=== PATIENT | male | born 2000 | race Two or more races ===

== ENCOUNTER 2019-05-03 13:38 | Inpatient (IN) | payer MEDICAID, OTHER ==
[~2019-05-03] VITALS: Ht 195.6 cm; Wt 121.6 kg
[2019-05-03 14:22] LABS: BASOPHILS % (AUTO) 0.4 % (0.0-2.0); EOSINOPHILS % (AUTO) 0.4 % (1.0-6.0); HEMATOCRIT 48.2 % (41-53); HEMOGLOBIN 16.2 g/dL (13.5-17.5); LYMPHOCYTES # (AUTO) 1.3 K/uL (1.0-4.8); LYMPHOCYTES % (AUTO) 10.3 % (22.0-44.0); MEAN CORPUSCULAR HEMOGLOBIN 31.1 pg (26.0-34.0); MEAN CORPUSCULAR HGB CONC 33.6 G/dL (31.0-37.0); MEAN CORPUSCULAR VOLUME 93 fL (80-100); MONOCYTES # (AUTO) 0.6 K/uL (0.1-1.0); MONOCYTES % (AUTO) 4.4 % (2.0-9.0); NEUTROPHILS # (AUTO) 10.5 K/uL (1.8-7.7); NEUTROPHILS % (AUTO) 84.5 % (40.0-70.0); PLATELET COUNT (AUTO) 235 K/uL (150-450)
[2019-05-03 14:31] LABS: ANION GAP 7 mmol/L (8-16); CALCIUM, TOTAL 9.8 mg/dL (8.8-10.5); CARBON DIOXIDE 30 mmol/L (22-29); CHLORIDE 101 mmol/L (98-107); CREATININE 1.03 mg/dL (0.60-1.30); GLOMERULAR FILTR. RATE CALC > 60 mL/min (>60); GLUCOSE,RANDOM 97 mg/dL (70-110); POTASSIUM 3.9 mmol/L (3.5-5.1); SODIUM SERUM 138 mmol/L (136-145); UREA NITROGEN, BLOOD 13 mg/dL (7-18)
[2019-05-03 14:37] LABS: ALANINE AMINOTRANSFERASE 21 U/L (12-78); ALBUMIN 4.7 g/dL (3.4-5.0); ALKALINE PHOSPHATASE 91 U/L (46-116); ASPARTATE AMINOTRANSFERASE 13 U/L (15-37); BILIRUBIN,TOTAL 1.2 mg/dL (0.1-1.0); TOTAL PROTEIN, SERUM 8.9 g/dL (6.4-8.2)
[2019-05-03] MEDS ORDERED: ACETAMINOPHEN 325 MG TABLET PO PRN (16:15)
[2019-05-03] MEDS ORDERED: IBUPROFEN 400 MG TABLET PO PRN (16:15)
[2019-05-03 16:32] LABS: AMPHET/METH SCREEN,URINE NEGATIVE (NEGATIVE); BARBITURATE SCREEN, URINE NEGATIVE (NEGATIVE); BENZODIAZEPINES SCREEN,URINE NEGATIVE (NEGATIVE); CANNABINOID SCREEN,URINE POSITIVE (NEGATIVE); COCAINE SCREEN,URINE NEGATIVE (NEGATIVE); METHADONE SCREEN, URINE NEGATIVE (NEGATIVE); OPIATE SCREEN,URINE NEGATIVE (NEGATIVE); PHENCYCLIDINE SCREEN,URINE NEGATIVE (NEGATIVE)
[2019-05-03 17:01] LABS: APPEARANCE,URINE CLEAR (CLEAR); GLUCOSE, URINE (UA) NEGATIVE (NEGATIVE); KETONES,URINE TRACE mg/dL (NEGATIVE); LEUKOCYTE ESTERASE ,URINE TRACE (NEGATIVE); NITRATE,URINE NEGATIVE (NEGATIVE); OCCULT BLOOD,URINE NEGATIVE (NEGATIVE); PH,URINE 7.5 (5.0-8.0); PROTEIN,URINE POS 1+ (NEGATIVE)
[2019-05-03 17:04] LABS: BILIRUBIN,URINE PRELIM. POSITIVE (NEGATIVE)
[2019-05-03 17:14] LABS: BACTERIA,URINE Rare /HPF (None Seen); RBC,URINE 0-2 /HPF (0-2); SQUAMOUS EPITHELIAL CELL,UR Few /LPF (None Seen)
[2019-05-03 19:35] VITALS: BP 139/81
[2019-05-03] MEDS ORDERED: CloNIDine HCL 0.1 MG TABLET PO PRN (20:00)
[2019-05-03] MEDS ORDERED: DOCUSATE SODIUM 100 MG CAPSULE PO PRN (20:00)
[2019-05-03] MEDS ORDERED: MAG HYDROX/AL HYDROX/SIMETH ES 30 ML SUSPENSION UDCUP PO PRN (20:00)
[2019-05-03] MEDS ORDERED: MAGNESIUM HYDROXIDE SUSPENSION 30 ML UDCUP PO PRN (20:00)
[2019-05-03] MEDS ORDERED: GuaiFENesin/D-METHORPHAN [SUGAR-FREE] 200-20MG/10 ML SYRUP UDCUP PO PRN (20:00)
[2019-05-03] MEDS ORDERED: LOPERAMIDE HCL 2 MG CAPSULE PO PRN (20:00)
[2019-05-03] MEDS ORDERED: ONDANSETRON HCL 4 MG TABLET PO PRN (20:00)
[2019-05-03] MEDS: ZOLPIDEM TARTRATE 10 MG TABLET PO PRN (20:41)
[2019-05-04 04:52] VITALS: BP 129/84
[2019-05-04 08:06] LABS: BASOPHILS % (AUTO) 0.3 % (0.0-2.0); EOSINOPHILS % (AUTO) 1.5 % (1.0-6.0); HEMATOCRIT 45.3 % (41-53); HEMOGLOBIN 15.4 g/dL (13.5-17.5); LYMPHOCYTES # (AUTO) 2.9 K/uL (1.0-4.8); LYMPHOCYTES % (AUTO) 29.8 % (22.0-44.0); MEAN CORPUSCULAR HEMOGLOBIN 31.5 pg (26.0-34.0); MEAN CORPUSCULAR HGB CONC 34.1 G/dL (31.0-37.0); MEAN CORPUSCULAR VOLUME 93 fL (80-100); MONOCYTES # (AUTO) 0.8 K/uL (0.1-1.0); MONOCYTES % (AUTO) 8.1 % (2.0-9.0); NEUTROPHILS # (AUTO) 5.9 K/uL (1.8-7.7); NEUTROPHILS % (AUTO) 60.3 % (40.0-70.0); PLATELET COUNT (AUTO) 225 K/uL (150-450); RED CELL DISTRIBUTION WIDTH 12.9 % (11.5-14.5)
[2019-05-04 08:20] LABS: HEMOGLOBIN A1C 5.1 % (4.5-6.2)
[2019-05-04 08:41] LABS: ALANINE AMINOTRANSFERASE 18 U/L (12-78); ALBUMIN 4.3 g/dL (3.4-5.0); ALKALINE PHOSPHATASE 76 U/L (46-116); ANION GAP 11 mmol/L (8-16); ASPARTATE AMINOTRANSFERASE 12 U/L (15-37); BILIRUBIN,TOTAL 1.2 mg/dL (0.1-1.0); CALCIUM, TOTAL 9.7 mg/dL (8.8-10.5); CARBON DIOXIDE 29 mmol/L (22-29); CHLORIDE 102 mmol/L (98-107); CHOL/HDL RATIO 3.3 (4.2-7.3); CHOLESTEROL 160 mg/dL (131-200); CREATININE 0.89 mg/dL (0.60-1.30); GLOMERULAR FILTR. RATE CALC > 60 mL/min (>60); GLUCOSE,RANDOM 81 mg/dL (70-110); HDL CHOLESTEROL 48 mg/dL (40-60); LDL CHOL (CALC.) 100 mg/dL (0-130); SODIUM SERUM 142 mmol/L (136-145); THYROID STIMULATING HORMONE 0.68 uIU/mL (0.36-3.74); TOTAL PROTEIN, SERUM 7.7 g/dL (6.4-8.2); TRIGLYCERIDES 58 mg/dL (15-150); UREA NITROGEN, BLOOD 10 mg/dL (7-18)
[2019-05-04 10:38] VITALS: BP 141/70
[2019-05-04] MEDS ORDERED: ALBUTEROL SULFATE HFA 90 MCG/PUFF 8 GM INHALER IH PRN (13:00)
[2019-05-04] MEDS ORDERED: ACETAMINOPHEN 325 MG TABLET PO PRN (13:00)
[2019-05-04] MEDS ORDERED: LOPERAMIDE HCL 2 MG CAPSULE PO PRN (13:00)
[2019-05-04] MEDS ORDERED: CloNIDine HCL 0.1 MG TABLET PO PRN (13:00)
[2019-05-04] MEDS ORDERED: IBUPROFEN 400 MG TABLET PO PRN (13:00)
[2019-05-04] MEDS ORDERED: GuaiFENesin/D-METHORPHAN [SUGAR-FREE] 200-20MG/10 ML SYRUP UDCUP PO PRN (13:00)
[2019-05-04] MEDS ORDERED: MAGNESIUM HYDROXIDE SUSPENSION 30 ML UDCUP PO PRN (13:00)
[2019-05-04] MEDS ORDERED: PETROLATUM,WHITE 28 GM JELLY TP PRN (13:00)
[2019-05-04] MEDS ORDERED: MAG HYDROX/AL HYDROX/SIMETH ES 30 ML SUSPENSION UDCUP PO PRN (13:00)
[2019-05-04] MEDS ORDERED: ONDANSETRON HCL 4 MG TABLET PO PRN (13:00)
[2019-05-04] MEDS ORDERED: DOCUSATE SODIUM 100 MG CAPSULE PO PRN (13:00)
[2019-05-04] MEDS ORDERED: NICOTINE 14 MG/24 HOUR PATCH TD PRN (13:00)
[2019-05-04 16:00] VITALS: BP 140/77
[2019-05-04] MEDS: LORazepam 2 MG TABLET PO PRN (20:07)
[2019-05-04] MEDS: HALOPERIDOL 5 MG TABLET PO PRN (20:07)
[2019-05-04] MEDS: ZOLPIDEM TARTRATE 10 MG TABLET PO PRN (22:10)
[2019-05-05 05:42] VITALS: BP 128/72
[2019-05-05 08:19] VITALS: BP 126/71
[2019-05-05 16:00] VITALS: BP 131/88
[2019-05-05] MEDS: HALOPERIDOL 5 MG TABLET PO PRN (16:16)
[2019-05-05] MEDS: LORazepam 2 MG TABLET PO PRN (16:16)
[2019-05-06 02:11] VITALS: BP 134/86
[2019-05-06 08:34] VITALS: BP 120/76
== END 2019-05-06 14:50 | disposition home or self-care (01) | DRG 750 ==
LOC: EMS 13:40 → B3A 16:46
PROVIDERS: ADMIT Psychiatry & Neurology Psychiatry; ATTEND Psychiatry & Neurology Psychiatry
DX: F20.9 Schizophrenia, unspecified (principal); R45.851 Suicidal ideations; D72.829 Elevated white blood cell count, unspecified; F32.9 Major depressive disorder, single episode, unspecified; E80.6 Other disorders of bilirubin metabolism; R03.0 Elevated blood-pressure reading, without diagnosis of hypertension; F12.10 Cannabis abuse, uncomplicated; Z71.51 Drug abuse counseling and surveillance of drug abuser
CPT/HCPCS: 83036; 84443; G0480

== ENCOUNTER 2019-05-10 00:14 | Emergency (ER) | payer MEDICAID, OTHER ==
[~2019-05-10] VITALS: Ht 195.6 cm; Wt 118.2 kg
[2019-05-10 01:27] LABS: AMPHET/METH SCREEN,URINE NEGATIVE (NEGATIVE); BARBITURATE SCREEN, URINE NEGATIVE (NEGATIVE); BENZODIAZEPINES SCREEN,URINE NEGATIVE (NEGATIVE); CANNABINOID SCREEN,URINE POSITIVE (NEGATIVE); COCAINE SCREEN,URINE NEGATIVE (NEGATIVE); METHADONE SCREEN, URINE NEGATIVE (NEGATIVE); OPIATE SCREEN,URINE NEGATIVE (NEGATIVE); PHENCYCLIDINE SCREEN,URINE NEGATIVE (NEGATIVE)
[2019-05-10] MEDS ORDERED: ACETAMINOPHEN 500 MG TABLET PO ONE (01:45)
[2019-05-10 01:54] LABS: BASOPHILS % (AUTO) 0.5 % (0.0-2.0); EOSINOPHILS % (AUTO) 1.2 % (1.0-6.0); HEMATOCRIT 44.3 % (41-53); HEMOGLOBIN 14.8 g/dL (13.5-17.5); LYMPHOCYTES % (AUTO) 17.5 % (22.0-44.0); MEAN CORPUSCULAR HEMOGLOBIN 31.1 pg (26.0-34.0); MEAN CORPUSCULAR HGB CONC 33.4 G/dL (31.0-37.0); MEAN CORPUSCULAR VOLUME 93 fL (80-100); MONOCYTES # (AUTO) 0.8 K/uL (0.1-1.0); MONOCYTES % (AUTO) 6.9 % (2.0-9.0); NEUTROPHILS # (AUTO) 8.5 K/uL (1.8-7.7); NEUTROPHILS % (AUTO) 73.9 % (40.0-70.0); PLATELET COUNT (AUTO) 214 K/uL (150-450); RED BLOOD CELL COUNT(AUTO) 4.75 MIL/uL (4.50-5.90); RED CELL DISTRIBUTION WIDTH 12.8 % (11.5-14.5)
[2019-05-10 01:58] LABS: ANION GAP 10 mmol/L (8-16); CALCIUM, TOTAL 9.6 mg/dL (8.8-10.5); CARBON DIOXIDE 30 mmol/L (22-29); CHLORIDE 100 mmol/L (98-107); CREATININE 1.02 mg/dL (0.60-1.30); GLOMERULAR FILTR. RATE CALC > 60 mL/min (>60); GLUCOSE,RANDOM 101 mg/dL (70-110); POTASSIUM 3.9 mmol/L (3.5-5.1); SODIUM SERUM 140 mmol/L (136-145); UREA NITROGEN, BLOOD 14 mg/dL (7-18)
[2019-05-10 02:05] LABS: ALANINE AMINOTRANSFERASE 18 U/L (12-78); ALBUMIN 4.5 g/dL (3.4-5.0); ALKALINE PHOSPHATASE 71 U/L (46-116); ASPARTATE AMINOTRANSFERASE 12 U/L (15-37); BILIRUBIN,TOTAL 0.4 mg/dL (0.1-1.0); TOTAL PROTEIN, SERUM 8.2 g/dL (6.4-8.2)
[2019-05-10 09:33] VITALS: BP 141/80
== END 2019-05-10 10:00 | disposition home or self-care (01) ==
LOC: EMS 00:16
DX: F20.9 Schizophrenia, unspecified (principal); F12.90 Cannabis use, unspecified, uncomplicated
CPT/HCPCS: 36415; 80053; 80307; 85025; 99285; G0480

== ENCOUNTER 2019-05-26 17:10 | Emergency (ER) | payer OTHER ==
[~2019-05-26] VITALS: Ht 195.6 cm; Wt 115.9 kg
[2019-05-26 20:21] LABS: BASOPHILS % (AUTO) 0.2 % (0.0-2.0); EOSINOPHILS % (AUTO) 0.1 % (1.0-6.0); HEMATOCRIT 47.3 % (41-53); HEMOGLOBIN 15.7 g/dL (13.5-17.5); LYMPHOCYTES # (AUTO) 1.3 K/uL (1.0-4.8); LYMPHOCYTES % (AUTO) 8.7 % (22.0-44.0); MEAN CORPUSCULAR HEMOGLOBIN 30.7 pg (26.0-34.0); MEAN CORPUSCULAR HGB CONC 33.2 G/dL (31.0-37.0); MEAN CORPUSCULAR VOLUME 92 fL (80-100); MONOCYTES # (AUTO) 0.8 K/uL (0.1-1.0); MONOCYTES % (AUTO) 5.5 % (2.0-9.0); NEUTROPHILS # (AUTO) 12.4 K/uL (1.8-7.7); PLATELET COUNT (AUTO) 220 K/uL (150-450); RED BLOOD CELL COUNT(AUTO) 5.12 MIL/uL (4.50-5.90); RED CELL DISTRIBUTION WIDTH 12.7 % (11.5-14.5)
[2019-05-26 20:22] LABS: ANION GAP 10 mmol/L (8-16); CALCIUM, TOTAL 9.4 mg/dL (8.8-10.5); CARBON DIOXIDE 27 mmol/L (22-29); CHLORIDE 103 mmol/L (98-107); CREATININE 0.89 mg/dL (0.60-1.30); GLOMERULAR FILTR. RATE CALC > 60 mL/min (>60); GLUCOSE,RANDOM 89 mg/dL (70-110); POTASSIUM 3.6 mmol/L (3.5-5.1); SODIUM SERUM 140 mmol/L (136-145); UREA NITROGEN, BLOOD 10 mg/dL (7-18)
[2019-05-26 20:27] LABS: NEUTROPHILS % (AUTO) 85.5 % (40.0-70.0)
[2019-05-26 20:30] LABS: ALANINE AMINOTRANSFERASE 16 U/L (12-78); ALBUMIN 4.4 g/dL (3.4-5.0); ALKALINE PHOSPHATASE 70 U/L (46-116); ASPARTATE AMINOTRANSFERASE 12 U/L (15-37); BILIRUBIN,TOTAL 0.9 mg/dL (0.1-1.0); TOTAL PROTEIN, SERUM 8.2 g/dL (6.4-8.2)
[2019-05-26 20:34] LABS: AMPHET/METH SCREEN,URINE NEGATIVE (NEGATIVE); BARBITURATE SCREEN, URINE NEGATIVE (NEGATIVE); BENZODIAZEPINES SCREEN,URINE NEGATIVE (NEGATIVE); CANNABINOID SCREEN,URINE POSITIVE (NEGATIVE); COCAINE SCREEN,URINE NEGATIVE (NEGATIVE); METHADONE SCREEN, URINE NEGATIVE (NEGATIVE); OPIATE SCREEN,URINE NEGATIVE (NEGATIVE); PHENCYCLIDINE SCREEN,URINE NEGATIVE (NEGATIVE)
[2019-05-26 21:51] VITALS: BP 132/65
== END 2019-05-26 22:16 | disposition home or self-care (01) ==
LOC: EMS 17:11
DX: F20.9 Schizophrenia, unspecified (principal); F12.90 Cannabis use, unspecified, uncomplicated
CPT/HCPCS: 36415; 80053; 80307; 85025; 99285; G0480

== ENCOUNTER 2019-05-30 12:12 | Emergency (ER) | payer OTHER ==
[~2019-05-30] VITALS: Ht 195.6 cm; Wt 113.6 kg
[2019-05-30 12:52] LABS: BASOPHILS % (AUTO) 0.6 % (0.0-2.0); EOSINOPHILS % (AUTO) 1.3 % (1.0-6.0); HEMATOCRIT 46.4 % (41-53); HEMOGLOBIN 15.7 g/dL (13.5-17.5); LYMPHOCYTES # (AUTO) 1.4 K/uL (1.0-4.8); LYMPHOCYTES % (AUTO) 15.8 % (22.0-44.0); MEAN CORPUSCULAR HEMOGLOBIN 31.4 pg (26.0-34.0); MEAN CORPUSCULAR HGB CONC 33.9 G/dL (31.0-37.0); MEAN CORPUSCULAR VOLUME 93 fL (80-100); MONOCYTES # (AUTO) 0.6 K/uL (0.1-1.0); MONOCYTES % (AUTO) 6.2 % (2.0-9.0); NEUTROPHILS # (AUTO) 6.9 K/uL (1.8-7.7); NEUTROPHILS % (AUTO) 76.1 % (40.0-70.0); PLATELET COUNT (AUTO) 195 K/uL (150-450)
[2019-05-30 13:01] LABS: ANION GAP 8 mmol/L (8-16); CARBON DIOXIDE 29 mmol/L (22-29); CHLORIDE 103 mmol/L (98-107); CREATININE 0.86 mg/dL (0.60-1.30); GLOMERULAR FILTR. RATE CALC > 60 mL/min (>60); GLUCOSE,RANDOM 99 mg/dL (70-110); POTASSIUM 4.2 mmol/L (3.5-5.1); SODIUM SERUM 140 mmol/L (136-145); UREA NITROGEN, BLOOD 12 mg/dL (7-18)
[2019-05-30 13:07] LABS: ALANINE AMINOTRANSFERASE 24 U/L (12-78); ALBUMIN 4.4 g/dL (3.4-5.0); ALKALINE PHOSPHATASE 68 U/L (46-116); ASPARTATE AMINOTRANSFERASE 14 U/L (15-37); BILIRUBIN,TOTAL 0.5 mg/dL (0.1-1.0); TOTAL PROTEIN, SERUM 8.1 g/dL (6.4-8.2)
[2019-05-30 13:41] LABS: AMPHET/METH SCREEN,URINE NEGATIVE (NEGATIVE); BARBITURATE SCREEN, URINE NEGATIVE (NEGATIVE); BENZODIAZEPINES SCREEN,URINE NEGATIVE (NEGATIVE); CANNABINOID SCREEN,URINE POSITIVE (NEGATIVE); COCAINE SCREEN,URINE NEGATIVE (NEGATIVE); METHADONE SCREEN, URINE NEGATIVE (NEGATIVE); OPIATE SCREEN,URINE NEGATIVE (NEGATIVE)
[2019-05-30 13:46] LABS: PHENCYCLIDINE SCREEN,URINE NEGATIVE (NEGATIVE)
[2019-05-30 15:11] VITALS: BP 132/70
== END 2019-05-30 16:03 | disposition home or self-care (01) ==
LOC: EMS 12:16
DX: F20.9 Schizophrenia, unspecified (principal); F12.90 Cannabis use, unspecified, uncomplicated
CPT/HCPCS: 36415; 80053; 80307; 85025; 99285; G0480

== ENCOUNTER 2019-09-06 08:02 | Inpatient (IN) | payer MEDICAID, OTHER ==
[~2019-09-06] VITALS: Ht 198.1 cm; Wt 125.2 kg
[2019-09-06 08:27] LABS: BASOPHILS % (AUTO) 0.5 % (0.0-2.0); EOSINOPHILS % (AUTO) 2.6 % (1.0-6.0); HEMATOCRIT 44.1 % (41-53); HEMOGLOBIN 15.8 g/dL (13.5-17.5); LYMPHOCYTES # (AUTO) 2.3 K/uL (1.0-4.8); LYMPHOCYTES % (AUTO) 29.4 % (22.0-44.0); MEAN CORPUSCULAR HEMOGLOBIN 31.9 pg (26.0-34.0); MEAN CORPUSCULAR HGB CONC 35.8 G/dL (31.0-37.0); MEAN CORPUSCULAR VOLUME 89 fL (80-100); MONOCYTES # (AUTO) 0.5 K/uL (0.1-1.0); MONOCYTES % (AUTO) 6.1 % (2.0-9.0); NEUTROPHILS # (AUTO) 4.8 K/uL (1.8-7.7); NEUTROPHILS % (AUTO) 61.4 % (40.0-70.0); PLATELET COUNT (AUTO) 208 K/uL (150-450); RED BLOOD CELL COUNT(AUTO) 4.94 MIL/uL (4.50-5.90)
[2019-09-06 08:31] LABS: ANION GAP 7 mmol/L (8-16); CALCIUM, TOTAL 8.7 mg/dL (8.8-10.5); CARBON DIOXIDE 29 mmol/L (22-29); CHLORIDE 103 mmol/L (98-107); GLOMERULAR FILTR. RATE CALC > 60 mL/min (>60); GLUCOSE,RANDOM 102 mg/dL (70-110); POTASSIUM 3.4 mmol/L (3.5-5.1); SODIUM SERUM 139 mmol/L (136-145); UREA NITROGEN, BLOOD 10 mg/dL (7-18)
[2019-09-06 08:37] LABS: ALANINE AMINOTRANSFERASE 26 U/L (12-78); ALBUMIN 4.1 g/dL (3.4-5.0); ALKALINE PHOSPHATASE 72 U/L (46-116); ASPARTATE AMINOTRANSFERASE 15 U/L (15-37); BILIRUBIN,TOTAL 0.6 mg/dL (0.1-1.0); TOTAL PROTEIN, SERUM 8.2 g/dL (6.4-8.2)
[2019-09-06 09:17] LABS: AMPHET/METH SCREEN,URINE NEGATIVE (NEGATIVE); BARBITURATE SCREEN, URINE NEGATIVE (NEGATIVE); BENZODIAZEPINES SCREEN,URINE NEGATIVE (NEGATIVE); CANNABINOID SCREEN,URINE POSITIVE (NEGATIVE); COCAINE SCREEN,URINE NEGATIVE (NEGATIVE); METHADONE SCREEN, URINE NEGATIVE (NEGATIVE); OPIATE SCREEN,URINE NEGATIVE (NEGATIVE); PHENCYCLIDINE SCREEN,URINE NEGATIVE (NEGATIVE)
[2019-09-06] MEDS ORDERED: HALOPERIDOL 5 MG TABLET PO ONE (09:45)
[2019-09-06] MEDS ORDERED: LORazepam 2 MG TABLET PO ONE (09:45)
[2019-09-06] MEDS ORDERED: DiphenhydrAMINE HCL 50 MG CAPSULE PO ONE (09:45)
[2019-09-06] MEDS ORDERED: POTASSIUM CHLORIDE 20 MEQ ER TABLET PO ONE (10:00)
[2019-09-06] MEDS ORDERED: HALOPERIDOL 5 MG TABLET PO PRN (10:15)
[2019-09-06] MEDS ORDERED: PNEUMOCOCCAL VACCINE POLYVALENT 0.5 ML VIAL [PPSV23] IM ONE (14:00)
[2019-09-06] MEDS ORDERED: INFLUENZA VIRUS VACCINE QVS 2019-20 (3YR+)/PF 60 MCG/0.5 ML SYRINGE IM ONE (14:00)
[2019-09-06 16:12] VITALS: BP 115/56
[2019-09-06] MEDS ORDERED: NICOTINE 14 MG/24 HOUR PATCH TD PRN (16:30)
[2019-09-06] MEDS ORDERED: MAGNESIUM HYDROXIDE SUSPENSION 30 ML UDCUP PO PRN (16:30)
[2019-09-06] MEDS ORDERED: PETROLATUM,WHITE 28 GM JELLY TP PRN (16:30)
[2019-09-06] MEDS ORDERED: MAG HYDROX/AL HYDROX/SIMETH ES 30 ML SUSPENSION UDCUP PO PRN (16:30)
[2019-09-06] MEDS ORDERED: DOCUSATE SODIUM 100 MG CAPSULE PO PRN (16:30)
[2019-09-06] MEDS ORDERED: ONDANSETRON HCL 4 MG TABLET PO PRN (16:30)
[2019-09-06] MEDS ORDERED: ACETAMINOPHEN 325 MG TABLET PO PRN (16:30)
[2019-09-06] MEDS ORDERED: GuaiFENesin/D-METHORPHAN [SUGAR-FREE] 200-20MG/10 ML SYRUP UDCUP PO PRN (16:30)
[2019-09-06] MEDS ORDERED: ALBUTEROL SULFATE HFA 90 MCG/PUFF 8 GM INHALER IH PRN (16:30)
[2019-09-06] MEDS ORDERED: CloNIDine HCL 0.1 MG TABLET PO PRN (16:30)
[2019-09-06] MEDS ORDERED: LOPERAMIDE HCL 2 MG CAPSULE PO PRN (16:30)
[2019-09-07 05:41] VITALS: BP 144/75
[2019-09-07 08:03] VITALS: BP 160/96
[2019-09-07 09:03] VITALS: BP 140/71
[2019-09-07] MEDS: BACITRACIN 28.4 GM OINTMENT TP SCH ×2 (09:05→16:48)
[2019-09-07] MEDS ORDERED: POTASSIUM CHLORIDE 20 MEQ ER TABLET PO ONE (10:45)
[2019-09-07] MEDS: ARIPiprazole 10 MG TABLET PO SCH (11:54)
[2019-09-07 16:23] VITALS: BP 133/92
[2019-09-07] MEDS: LORazepam 2 MG TABLET PO PRN (21:27)
[2019-09-07] MEDS: ZOLPIDEM TARTRATE 10 MG TABLET PO PRN (22:40)
[2019-09-08 06:10] VITALS: BP 135/73
[2019-09-08 08:25] VITALS: BP 148/76
[2019-09-08] MEDS: ARIPiprazole 10 MG TABLET PO SCH (08:41)
[2019-09-08] MEDS: BACITRACIN 28.4 GM OINTMENT TP SCH ×2 (10:05→16:46)
[2019-09-08] MEDS: IBUPROFEN 400 MG TABLET PO PRN (10:11)
[2019-09-08 16:00] VITALS: BP 128/75
[2019-09-08] MEDS: LORazepam 2 MG TABLET PO PRN ×2 (16:46→20:49)
[2019-09-08] MEDS: ZOLPIDEM TARTRATE 10 MG TABLET PO PRN (20:49)
[2019-09-09 05:54] VITALS: BP 127/83
[2019-09-09] MEDS: ARIPiprazole 10 MG TABLET PO SCH (08:14)
[2019-09-09 08:15] VITALS: BP 116/76
[2019-09-09] MEDS: BACITRACIN 28.4 GM OINTMENT TP SCH (08:33)
[2019-09-09] MEDS ORDERED: BACI30OI6 TP (11:34)
[2019-09-09] MEDS ORDERED: ARIP10TA8 PO (11:34)
[2019-09-09] MEDS: IBUPROFEN 400 MG TABLET PO PRN (11:49)
== END 2019-09-09 13:15 | disposition home or self-care (01) | DRG 750 ==
LOC: EMS 08:03 → B3A 10:57 → EMS 11:37
DX: F25.1 Schizoaffective disorder, depressive type (principal); R45.851 Suicidal ideations; Z91.14 Patient's other noncompliance with medication regimen; E87.6 Hypokalemia; F12.10 Cannabis abuse, uncomplicated; K21.9 Gastro-esophageal reflux disease without esophagitis; S60.511A Abrasion of right hand, initial encounter; R03.0 Elevated blood-pressure reading, without diagnosis of hypertension; F19.10 Other psychoactive substance abuse, uncomplicated; W22.01XA Walked into wall, initial encounter; Y93.89 Activity, other specified; Y92.89 Other specified places as the place of occurrence of the external cause; Y99.8 Other external cause status; Z79.899 Other long term (current) drug therapy; Z71.51 Drug abuse counseling and surveillance of drug abuser
CPT/HCPCS: 90686; 90732; G0480

== ENCOUNTER 2019-10-23 00:25 | Emergency (ER) | payer MEDICAID, OTHER ==
[~2019-10-23] VITALS: Ht 193 cm; Wt 120.5 kg
[~2019-10-23 00:25] MED LIST: ARIP10TA8 PO; BACI30OI6 TP
[2019-10-23 02:24] LABS: AMPHET/METH SCREEN,URINE NEGATIVE (NEGATIVE); BARBITURATE SCREEN, URINE NEGATIVE (NEGATIVE); BENZODIAZEPINES SCREEN,URINE NEGATIVE (NEGATIVE); CANNABINOID SCREEN,URINE POSITIVE (NEGATIVE); COCAINE SCREEN,URINE NEGATIVE (NEGATIVE); METHADONE SCREEN, URINE NEGATIVE (NEGATIVE); OPIATE SCREEN,URINE NEGATIVE (NEGATIVE); PHENCYCLIDINE SCREEN,URINE NEGATIVE (NEGATIVE)
[2019-10-23 02:35] LABS: BASOPHILS % (AUTO) 0.3 % (0.0-2.0); EOSINOPHILS % (AUTO) 0.1 % (1.0-6.0); HEMOGLOBIN 15.2 g/dL (13.5-17.5); LYMPHOCYTES # (AUTO) 1.2 K/uL (1.0-4.8); MEAN CORPUSCULAR HEMOGLOBIN 31.5 pg (26.0-34.0); MEAN CORPUSCULAR HGB CONC 34.6 G/dL (31.0-37.0); MEAN CORPUSCULAR VOLUME 91 fL (80-100); MONOCYTES # (AUTO) 0.7 K/uL (0.1-1.0); MONOCYTES % (AUTO) 5.1 % (2.0-9.0); NEUTROPHILS # (AUTO) 11.7 K/uL (1.8-7.7); PLATELET COUNT (AUTO) 217 K/uL (150-450); RED BLOOD CELL COUNT(AUTO) 4.83 MIL/uL (4.50-5.90); RED CELL DISTRIBUTION WIDTH 13.2 % (11.5-14.5)
[2019-10-23 02:36] LABS: NEUTROPHILS % (AUTO) 85.5 % (40.0-70.0)
[2019-10-23 02:46] LABS: ANION GAP 6 mmol/L (8-16); CARBON DIOXIDE 31 mmol/L (22-29); CHLORIDE 102 mmol/L (98-107); CREATININE 0.89 mg/dL (0.60-1.30); GLOMERULAR FILTR. RATE CALC > 60 mL/min (>60); GLUCOSE,RANDOM 100 mg/dL (70-110); POTASSIUM 3.9 mmol/L (3.5-5.1); SODIUM SERUM 139 mmol/L (136-145); UREA NITROGEN, BLOOD 15 mg/dL (7-18)
[2019-10-23 02:52] LABS: ALANINE AMINOTRANSFERASE 38 U/L (12-78); ALKALINE PHOSPHATASE 79 U/L (46-116); ASPARTATE AMINOTRANSFERASE 15 U/L (15-37); BILIRUBIN,TOTAL 0.5 mg/dL (0.1-1.0); TOTAL PROTEIN, SERUM 7.7 g/dL (6.4-8.2)
[2019-10-23] MEDS ORDERED: PERTUSS(ACELL),DIPH,TET VAC/PF 0.5 ML VIAL IM ONE (03:45)
[2019-10-23] MEDS ORDERED: ZOLPIDEM TARTRATE 10 MG TABLET PO PRN (04:15)
[2019-10-23] MEDS ORDERED: HALOPERIDOL 5 MG TABLET PO PRN (04:15)
[2019-10-23] MEDS ORDERED: LORazepam 2 MG TABLET PO PRN (04:15)
[2019-10-23 07:00] VITALS: BP 121/75
[2019-10-23] MEDS ORDERED: PETROLATUM,WHITE 28 GM JELLY TP PRN (08:45)
[2019-10-23] MEDS ORDERED: CloNIDine HCL 0.1 MG TABLET PO PRN (08:45)
[2019-10-23] MEDS ORDERED: ONDANSETRON HCL 4 MG TABLET PO PRN (08:45)
[2019-10-23] MEDS ORDERED: DOCUSATE SODIUM 100 MG CAPSULE PO PRN (08:45)
[2019-10-23] MEDS ORDERED: LOPERAMIDE HCL 2 MG CAPSULE PO PRN (08:45)
[2019-10-23] MEDS ORDERED: ACETAMINOPHEN 325 MG TABLET PO PRN (08:45)
[2019-10-23] MEDS ORDERED: MAGNESIUM HYDROXIDE SUSPENSION 30 ML UDCUP PO PRN (08:45)
[2019-10-23] MEDS ORDERED: NICOTINE 14 MG/24 HOUR PATCH TD PRN (08:45)
[2019-10-23] MEDS ORDERED: MAG HYDROX/AL HYDROX/SIMETH ES 30 ML SUSPENSION UDCUP PO PRN (08:45)
[2019-10-23] MEDS ORDERED: GuaiFENesin/D-METHORPHAN [SUGAR-FREE] 200-20MG/10 ML SYRUP UDCUP PO PRN (08:45)
[2019-10-23] MEDS ORDERED: ALBUTEROL SULFATE HFA 90 MCG/PUFF 8 GM INHALER IH PRN (08:45)
[2019-10-23] MEDS ORDERED: IBUPROFEN 400 MG TABLET PO PRN (08:45)
[2019-10-24 04:27] LABS: APPEARANCE,URINE CLOUDY (CLEAR); BILIRUBIN,URINE NEGATIVE (NEGATIVE); GLUCOSE, URINE (UA) NEGATIVE (NEGATIVE); KETONES,URINE NEGATIVE (NEGATIVE); LEUKOCYTE ESTERASE ,URINE NEGATIVE (NEGATIVE); NITRATE,URINE NEGATIVE (NEGATIVE); OCCULT BLOOD,URINE NEGATIVE (NEGATIVE); PROTEIN,URINE TRACE (NEGATIVE); UROBILINOGEN,URINE 0.2 mg/dL (<=1.0)
== END 2019-10-23 11:30 | disposition other institution (70) ==
LOC: EMS 00:27
DX: F25.9 Schizoaffective disorder, unspecified (principal); F12.90 Cannabis use, unspecified, uncomplicated; Z79.899 Other long term (current) drug therapy
CPT/HCPCS: 36415; 73610; 80053; 80307; 81003; 85025; 90471; 90715; 99285; G0480

== ENCOUNTER 2019-10-23 14:18 | Inpatient (IN) | payer MEDICAID, OTHER ==
[~2019-10-23] VITALS: Ht 193 cm; Wt 130.7 kg
[2019-10-23] MEDS ORDERED: DiphenhydrAMINE HCL 50 MG/ML VIAL IM ONE (14:30)
[2019-10-23] MEDS ORDERED: HALOPERIDOL LACTATE 5 MG/ML VIAL IM ONE (14:30)
[2019-10-23] MEDS ORDERED: LORazepam 2 MG/ML VIAL IM ONE (14:30)
[2019-10-24] MEDS ORDERED: INFLUENZA VIRUS VACCINE QVS 2019-20 (3YR+)/PF 60 MCG/0.5 ML SYRINGE IM ONE (05:45)
[2019-10-24 16:05] VITALS: BP 125/70
[2019-10-24] MEDS: HALOPERIDOL 5 MG TABLET PO PRN (16:21)
[2019-10-24] MEDS: LORazepam 2 MG TABLET PO PRN (16:21)
[2019-10-24] MEDS: BACITRACIN 28.4 GM OINTMENT TP SCH (16:21)
[2019-10-24] MEDS: ZOLPIDEM TARTRATE 10 MG TABLET PO PRN (20:42)
[2019-10-24] MEDS ORDERED: ARIPiprazole 15 MG TABLET PO SCH (21:00)
[2019-10-25 08:32] VITALS: BP 110/54
[2019-10-25] MEDS: BACITRACIN 28.4 GM OINTMENT TP SCH ×2 (10:39→16:38)
[2019-10-25] MEDS ORDERED: IBUPROFEN 400 MG TABLET PO PRN (10:45)
[2019-10-25 16:04] VITALS: BP 114/60
[2019-10-25] MEDS: HALOPERIDOL 5 MG TABLET PO PRN (18:59)
[2019-10-25] MEDS: LORazepam 2 MG TABLET PO PRN (18:59)
[2019-10-25] MEDS ORDERED: ARIPiprazole LAUROXIL ER SUSPENSION 882 MG/3.2 ML SYRINGE IM SCH (21:00)
[2019-10-25] MEDS: ZOLPIDEM TARTRATE 10 MG TABLET PO PRN (21:30)
[2019-10-26 08:27] VITALS: BP 124/68
[2019-10-26] MEDS: BACITRACIN 28.4 GM OINTMENT TP SCH ×3 (08:35→17:00)
[2019-10-26] MEDS: LORazepam 2 MG TABLET PO PRN ×2 (08:36→16:22)
[2019-10-26] MEDS ORDERED: ARIPiprazole 15 MG TABLET PO ONE (09:30)
[2019-10-26 09:38] LABS: CHOL/HDL RATIO 3.6 (4.2-7.3); FREE T4 (FREE THYROXINE) 1.19 ng/dL (0.76-1.46); THYROID STIMULATING HORMONE 0.59 uIU/mL (0.36-3.74)
[2019-10-26] MEDS ORDERED: ARIPiprazole LAUROXIL,SUBMICR. ER SUSPENSION 675 MG/2.4 ML SYRINGE IM ONE (11:00)
[2019-10-26] MEDS ORDERED: ARIPiprazole LAUROXIL ER SUSPENSION 1064 MG/3.9 ML SYRINGE IM ONE (11:00)
[2019-10-26 16:00] VITALS: BP 117/7
[2019-10-26] MEDS: HALOPERIDOL 5 MG TABLET PO PRN (16:22)
[2019-10-27 01:22] VITALS: BP 134/73
[2019-10-27 08:30] VITALS: BP 125/60
[2019-10-27] MEDS: BACITRACIN 28.4 GM OINTMENT TP SCH (09:58)
[2019-10-27] MEDS ORDERED: ARIP1064 IM ×2 (13:09→13:11)
[2019-10-27] MEDS ORDERED: ARIP662S IM (13:09)
== END 2019-10-27 13:55 | disposition home or self-care (01) | DRG 750 ==
LOC: EMS 14:18 → B3A 17:14
PROVIDERS: ADMIT Psychiatry & Neurology Child & Adolescent Psychiatry; ATTEND Psychiatry & Neurology Child & Adolescent Psychiatry
DX: F20.0 Paranoid schizophrenia (principal); R45.851 Suicidal ideations; Z78.1 Physical restraint status; F12.10 Cannabis abuse, uncomplicated; K21.9 Gastro-esophageal reflux disease without esophagitis; R00.0 Tachycardia, unspecified; Z28.21 Immunization not carried out because of patient refusal; Z79.899 Other long term (current) drug therapy
CPT/HCPCS: 84439; 84443; 99291; J1200; J1630; J2060

== ENCOUNTER 2019-12-07 12:41 | Inpatient (IN) | payer MEDICAID, OTHER ==
[~2019-12-07] VITALS: Ht 198.1 cm; Wt 138.8 kg
[~2019-12-07 12:41] MED LIST changes: +ARIP1064 IM; -ARIP10TA8 PO; +ARIP662S IM
[2019-12-07 14:35] LABS: BASOPHILS % (AUTO) 0.3 % (0.0-2.0); EOSINOPHILS % (AUTO) 0.2 % (1.0-6.0); HEMATOCRIT 46.8 % (41-53); HEMOGLOBIN 16.3 g/dL (13.5-17.5); LYMPHOCYTES # (AUTO) 1.3 K/uL (1.0-4.8); LYMPHOCYTES % (AUTO) 9.2 % (22.0-44.0); MEAN CORPUSCULAR HEMOGLOBIN 31.4 pg (26.0-34.0); MEAN CORPUSCULAR HGB CONC 34.8 G/dL (31.0-37.0); MEAN CORPUSCULAR VOLUME 90 fL (80-100); MONOCYTES # (AUTO) 0.8 K/uL (0.1-1.0); MONOCYTES % (AUTO) 5.2 % (2.0-9.0); NEUTROPHILS # (AUTO) 12.5 K/uL (1.8-7.7); NEUTROPHILS % (AUTO) 85.1 % (40.0-70.0); PLATELET COUNT (AUTO) 214 K/uL (150-450); RED BLOOD CELL COUNT(AUTO) 5.17 MIL/uL (4.50-5.90)
[2019-12-07 14:46] LABS: ANION GAP 8 mmol/L (8-16); CALCIUM, TOTAL 9.4 mg/dL (8.8-10.5); CARBON DIOXIDE 28 mmol/L (22-29); CHLORIDE 100 mmol/L (98-107); CREATININE 1.01 mg/dL (0.60-1.30); GLOMERULAR FILTR. RATE CALC > 60 mL/min (>60); GLUCOSE,RANDOM 98 mg/dL (70-110); SODIUM SERUM 136 mmol/L (136-145); UREA NITROGEN, BLOOD 12 mg/dL (7-18)
[2019-12-07 14:51] LABS: ALANINE AMINOTRANSFERASE 35 U/L (12-78); ALBUMIN 4.4 g/dL (3.4-5.0); ALKALINE PHOSPHATASE 84 U/L (46-116); ASPARTATE AMINOTRANSFERASE 17 U/L (15-37); BILIRUBIN,TOTAL 0.7 mg/dL (0.1-1.0); TOTAL PROTEIN, SERUM 8.6 g/dL (6.4-8.2)
[2019-12-07 14:56] LABS: AMPHET/METH SCREEN,URINE NEGATIVE (NEGATIVE); BARBITURATE SCREEN, URINE NEGATIVE (NEGATIVE); BENZODIAZEPINES SCREEN,URINE NEGATIVE (NEGATIVE); CANNABINOID SCREEN,URINE POSITIVE (NEGATIVE); COCAINE SCREEN,URINE NEGATIVE (NEGATIVE); METHADONE SCREEN, URINE NEGATIVE (NEGATIVE); OPIATE SCREEN,URINE NEGATIVE (NEGATIVE)
[2019-12-07 14:57] LABS: PHENCYCLIDINE SCREEN,URINE NEGATIVE (NEGATIVE)
[2019-12-07] MEDS ORDERED: HALOPERIDOL 5 MG TABLET PO PRN (15:15)
[2019-12-07] MEDS ORDERED: LORazepam 2 MG TABLET PO ONE (16:30)
[2019-12-07] MEDS ORDERED: HALOPERIDOL 5 MG TABLET PO ONE (16:30)
[2019-12-07 17:38] VITALS: BP 147/88
[2019-12-07] MEDS: ZOLPIDEM TARTRATE 10 MG TABLET PO PRN (20:16)
[2019-12-08 09:30] VITALS: BP 122/78
[2019-12-08] MEDS ORDERED: ARIPiprazole LAUROXIL ER SUSPENSION 1064 MG/3.9 ML SYRINGE IM SCH (11:00)
[2019-12-08] MEDS ORDERED: IBUPROFEN 400 MG TABLET PO PRN (14:15)
[2019-12-08] MEDS ORDERED: CloNIDine HCL 0.1 MG TABLET PO PRN (14:15)
[2019-12-08] MEDS ORDERED: ACETAMINOPHEN 325 MG TABLET PO PRN (14:15)
[2019-12-08] MEDS ORDERED: NICOTINE 14 MG/24 HOUR PATCH TD PRN (14:15)
[2019-12-08] MEDS ORDERED: DOCUSATE SODIUM 100 MG CAPSULE PO PRN (14:15)
[2019-12-08] MEDS ORDERED: ALBUTEROL SULFATE HFA 90 MCG/PUFF 8 GM INHALER IH PRN (14:15)
[2019-12-08] MEDS ORDERED: ONDANSETRON HCL 4 MG TABLET PO PRN (14:15)
[2019-12-08] MEDS ORDERED: LOPERAMIDE HCL 2 MG CAPSULE PO PRN (14:15)
[2019-12-08] MEDS ORDERED: PETROLATUM,WHITE 28 GM JELLY TP PRN (14:15)
[2019-12-08] MEDS ORDERED: MAGNESIUM HYDROXIDE SUSPENSION 30 ML UDCUP PO PRN (14:15)
[2019-12-08] MEDS ORDERED: GuaiFENesin/D-METHORPHAN [SUGAR-FREE] 200-20MG/10 ML SYRUP UDCUP PO PRN (14:15)
[2019-12-08] MEDS ORDERED: MAG HYDROX/AL HYDROX/SIMETH ES 30 ML SUSPENSION UDCUP PO PRN (14:15)
[2019-12-08 16:10] VITALS: BP 141/82
[2019-12-08] MEDS: LORazepam 2 MG TABLET PO PRN (19:32)
[2019-12-09] MEDS: LORazepam 2 MG TABLET PO PRN (16:47)
[2019-12-09 20:22] VITALS: BP 119/68
[2019-12-09] MEDS: ZOLPIDEM TARTRATE 10 MG TABLET PO PRN (20:53)
[2019-12-10 08:08] VITALS: BP 131/76
[2019-12-10] MEDS ORDERED: ARIP1064 IM (09:41)
== END 2019-12-10 13:30 | disposition home or self-care (01) | DRG 885 ==
LOC: EMS 12:46 → 3EC 16:20
DX: F25.0 Schizoaffective disorder, bipolar type (principal); F12.10 Cannabis abuse, uncomplicated; D72.829 Elevated white blood cell count, unspecified; F41.9 Anxiety disorder, unspecified
CPT/HCPCS: 87081; G0480

== ENCOUNTER 2020-07-07 09:13 | Inpatient (IN) | payer MEDICAID, OTHER ==
[~2020-07-07] VITALS: Ht 188 cm; Wt 153.3 kg
[~2020-07-07 09:13] MED LIST changes: -ARIP662S IM; -BACI30OI6 TP
[2020-07-07] MEDS ORDERED: MethylPREDNISolone SOD SUCC 125 MG/2 ML VIAL IVP ONE (10:00)
[2020-07-07] MEDS ORDERED: FAMOTIDINE 10 MG/ML 2 ML VIAL IVP ONE (10:00)
[2020-07-07] MEDS ORDERED: DiphenhydrAMINE HCL 50 MG/ML VIAL IVP ONE (10:00)
[2020-07-07] MEDS ORDERED: SODIUM CHLORIDE 0.9% 1,000 ML IV ONE (10:00)
[2020-07-07] MEDS ORDERED: DiphenhydrAMINE HCL 50 MG/ML VIAL IM ONE ×2 (10:15→13:30)
[2020-07-07] MEDS ORDERED: LORazepam 2 MG/ML VIAL IM ONE ×2 (10:15→13:30)
[2020-07-07] MEDS ORDERED: HALOPERIDOL LACTATE 5 MG/ML VIAL IM ONE ×2 (10:15→13:30)
[2020-07-07 10:45] LABS: BASOPHILS % (AUTO) 0.3 % (0.0-2.0); EOSINOPHILS % (AUTO) 0.7 % (1.0-6.0); MEAN CORPUSCULAR HGB CONC 35.6 G/dL (31.0-37.0); MEAN CORPUSCULAR VOLUME 90 fL (80-100); MONOCYTES # (AUTO) 0.6 K/uL (0.1-1.0); MONOCYTES % (AUTO) 5.6 % (2.0-9.0); NEUTROPHILS # (AUTO) 8.2 K/uL (1.8-7.7); NEUTROPHILS % (AUTO) 83.4 % (40.0-70.0); PLATELET COUNT (AUTO) 227 K/uL (150-450); RED CELL DISTRIBUTION WIDTH 12.7 % (11.5-14.5)
[2020-07-07 10:54] LABS: ANION GAP 6 mmol/L (8-16); CALCIUM, TOTAL 9.1 mg/dL (8.8-10.5); CARBON DIOXIDE 30 mmol/L (22-29); CHLORIDE 104 mmol/L (98-107); GLOMERULAR FILTR. RATE CALC > 60 mL/min (>60); GLUCOSE,RANDOM 116 mg/dL (70-110); POTASSIUM 3.4 mmol/L (3.5-5.1); SODIUM SERUM 140 mmol/L (136-145); UREA NITROGEN, BLOOD 7 mg/dL (7-18)
[2020-07-07 10:57] LABS: COVID AG,FIA SOURCE NASOPHARYNGEAL
[2020-07-07 11:00] LABS: ALANINE AMINOTRANSFERASE 132 U/L (12-78); ALKALINE PHOSPHATASE 73 U/L (46-116); ASPARTATE AMINOTRANSFERASE 69 U/L (15-37); BILIRUBIN,TOTAL 0.9 mg/dL (0.1-1.0); TOTAL PROTEIN, SERUM 7.5 g/dL (6.4-8.2)
[2020-07-07] MEDS ORDERED: POTASSIUM CHLORIDE 20 MEQ ER TABLET PO ONE (12:45)
[2020-07-07] MEDS ORDERED: INFLUENZA VIRUS VACCINE QVS 2020-21 (6MO+)/PF 60 MCG/0.5 ML SYRINGE IM ONE (21:00)
[2020-07-08] MEDS: LORazepam 2 MG TABLET PO PRN ×2 (07:59→13:10)
[2020-07-08] MEDS: HALOPERIDOL 5 MG TABLET PO PRN ×2 (07:59→13:10)
[2020-07-08 10:40] VITALS: BP 131/71
[2020-07-08] MEDS ORDERED: POTASSIUM CHLORIDE 20 MEQ ER TABLET PO ONE (15:15)
[2020-07-08] MEDS ORDERED: CloNIDine HCL 0.1 MG TABLET PO PRN (15:15)
[2020-07-08] MEDS ORDERED: NICOTINE 14 MG/24 HOUR PATCH TD PRN (15:15)
[2020-07-08] MEDS ORDERED: MAGNESIUM HYDROXIDE SUSPENSION 30 ML UDCUP PO PRN (15:15)
[2020-07-08] MEDS ORDERED: ONDANSETRON HCL 4 MG TABLET PO PRN (15:15)
[2020-07-08] MEDS ORDERED: PETROLATUM,WHITE 28 GM JELLY TP PRN (15:15)
[2020-07-08] MEDS ORDERED: LOPERAMIDE HCL 2 MG CAPSULE PO PRN (15:15)
[2020-07-08] MEDS ORDERED: ALBUTEROL SULFATE HFA 90 MCG/PUFF 8 GM INHALER IH PRN (15:15)
[2020-07-08] MEDS ORDERED: IBUPROFEN 400 MG TABLET PO PRN (15:15)
[2020-07-08] MEDS ORDERED: DOCUSATE SODIUM 100 MG CAPSULE PO PRN (15:15)
[2020-07-08] MEDS ORDERED: ACETAMINOPHEN 325 MG TABLET PO PRN (15:15)
[2020-07-08] MEDS ORDERED: MAG HYDROX/AL HYDROX/SIMETH ES 30 ML SUSPENSION UDCUP PO PRN (15:15)
[2020-07-08] MEDS ORDERED: GuaiFENesin/D-METHORPHAN [SUGAR-FREE] 200-20MG/10 ML SYRUP UDCUP PO PRN (15:15)
[2020-07-09] MEDS: HALOPERIDOL 5 MG TABLET PO PRN ×2 (03:24→08:39)
[2020-07-09] MEDS: LORazepam 2 MG TABLET PO PRN ×2 (03:24→08:39)
[2020-07-09] MEDS: ZOLPIDEM TARTRATE 10 MG TABLET PO PRN (03:24)
[2020-07-09] MEDS: ARIPiprazole 10 MG TABLET PO SCH (08:17)
[2020-07-10] MEDS: LORazepam 2 MG TABLET PO PRN ×3 (01:12→21:24)
[2020-07-10] MEDS: HALOPERIDOL 5 MG TABLET PO PRN ×2 (01:12→21:24)
[2020-07-10] MEDS: ZOLPIDEM TARTRATE 10 MG TABLET PO PRN ×2 (01:12→22:13)
[2020-07-10 07:15] LABS: CHOL/HDL RATIO 3.7 (4.2-7.3); POTASSIUM 3.8 mmol/L (3.5-5.1)
[2020-07-10] MEDS: ARIPiprazole 10 MG TABLET PO SCH (08:54)
[2020-07-11] MEDS: LORazepam 2 MG TABLET PO PRN ×3 (07:51→19:11)
[2020-07-11] MEDS: HALOPERIDOL 5 MG TABLET PO PRN ×3 (07:51→19:11)
[2020-07-11] MEDS: ARIPiprazole 10 MG TABLET PO SCH ×2 (07:51→17:57)
[2020-07-11 08:00] VITALS: BP 166/78
[2020-07-11] MEDS: SERTRALINE HCL 50 MG TABLET PO SCH (11:14)
[2020-07-11 17:00] VITALS: BP 122/86
[2020-07-12] MEDS: LORazepam 2 MG TABLET PO PRN (08:01)
[2020-07-12] MEDS: SERTRALINE HCL 50 MG TABLET PO SCH (08:01)
[2020-07-12] MEDS: HALOPERIDOL 5 MG TABLET PO PRN (08:01)
[2020-07-12] MEDS: ARIPiprazole 10 MG TABLET PO SCH ×2 (08:01→17:30)
[2020-07-12 10:32] VITALS: BP 135/72
[2020-07-13] MEDS: HALOPERIDOL 5 MG TABLET PO PRN ×4 (03:42→16:08)
[2020-07-13] MEDS: LORazepam 2 MG TABLET PO PRN ×4 (03:42→16:08)
[2020-07-13] MEDS: ARIPiprazole 10 MG TABLET PO SCH ×2 (07:58→16:08)
[2020-07-13] MEDS: SERTRALINE HCL 50 MG TABLET PO SCH (10:11)
[2020-07-13 17:00] VITALS: BP 107/50
[2020-07-14] MEDS: ARIPiprazole 10 MG TABLET PO SCH ×2 (09:00→17:22)
[2020-07-14] MEDS: SERTRALINE HCL 50 MG TABLET PO SCH (09:00)
[2020-07-14] MEDS: LORazepam 2 MG TABLET PO PRN ×3 (12:53→23:25)
[2020-07-14 16:32] VITALS: BP 148/70
[2020-07-14] MEDS: GABAPENTIN 300 MG CAPSULE PO SCH (17:22)
[2020-07-14] MEDS: HALOPERIDOL 5 MG TABLET PO PRN (23:25)
[2020-07-15] MEDS: ZOLPIDEM TARTRATE 10 MG TABLET PO PRN (02:03)
[2020-07-15 08:00] VITALS: BP 136/70
[2020-07-15] MEDS: GABAPENTIN 300 MG CAPSULE PO SCH ×2 (08:16→16:09)
[2020-07-15] MEDS: ARIPiprazole 10 MG TABLET PO SCH ×2 (08:16→16:09)
[2020-07-15] MEDS: LORazepam 2 MG TABLET PO PRN ×2 (08:16→16:10)
[2020-07-15] MEDS: HALOPERIDOL 5 MG TABLET PO PRN ×2 (08:16→16:10)
[2020-07-15] MEDS: SERTRALINE HCL 50 MG TABLET PO SCH (08:16)
[2020-07-15 16:25] VITALS: BP 126/60
[2020-07-16] MEDS: LORazepam 2 MG TABLET PO PRN ×2 (08:08→17:17)
[2020-07-16] MEDS: GABAPENTIN 300 MG CAPSULE PO SCH ×2 (08:08→17:17)
[2020-07-16] MEDS: HALOPERIDOL 5 MG TABLET PO PRN ×2 (08:08→19:16)
[2020-07-16] MEDS: ARIPiprazole 10 MG TABLET PO SCH ×2 (08:08→17:17)
[2020-07-16 08:45] VITALS: BP 135/69
[2020-07-16] MEDS: SERTRALINE HCL 50 MG TABLET PO SCH (10:31)
[2020-07-16] MEDS: ZOLPIDEM TARTRATE 10 MG TABLET PO PRN (20:13)
[2020-07-17 08:00] VITALS: BP 158/99
[2020-07-17] MEDS: SERTRALINE HCL 50 MG TABLET PO SCH (09:53)
[2020-07-17] MEDS: ARIPiprazole 10 MG TABLET PO SCH ×2 (09:53→16:20)
[2020-07-17] MEDS: GABAPENTIN 300 MG CAPSULE PO SCH ×2 (09:53→16:20)
[2020-07-17] MEDS: LORazepam 2 MG TABLET PO PRN (09:54)
[2020-07-17] MEDS: HALOPERIDOL 5 MG TABLET PO PRN (09:55)
[2020-07-17 16:16] VITALS: BP 160/97
[2020-07-17] MEDS: ZOLPIDEM TARTRATE 10 MG TABLET PO PRN (22:51)
[2020-07-18 08:00] VITALS: BP 154/82
[2020-07-18] MEDS: HALOPERIDOL 5 MG TABLET PO PRN ×2 (09:39→16:29)
[2020-07-18] MEDS: SERTRALINE HCL 50 MG TABLET PO SCH (09:39)
[2020-07-18] MEDS: LORazepam 2 MG TABLET PO PRN ×2 (09:39→16:29)
[2020-07-18] MEDS: GABAPENTIN 300 MG CAPSULE PO SCH ×2 (09:39→16:29)
[2020-07-18] MEDS: ARIPiprazole 10 MG TABLET PO SCH ×2 (09:39→16:29)
[2020-07-18 16:34] VITALS: BP 152/84
[2020-07-19] MEDS: ZOLPIDEM TARTRATE 10 MG TABLET PO PRN ×2 (00:39→20:12)
[2020-07-19] MEDS: LORazepam 2 MG TABLET PO PRN ×2 (00:39→15:56)
[2020-07-19 08:00] VITALS: BP 135/72
[2020-07-19] MEDS: GABAPENTIN 300 MG CAPSULE PO SCH ×2 (08:40→16:06)
[2020-07-19] MEDS: ARIPiprazole 10 MG TABLET PO SCH ×2 (08:40→16:06)
[2020-07-19] MEDS: SERTRALINE HCL 50 MG TABLET PO SCH (09:23)
[2020-07-19 16:58] VITALS: BP 164/92
[2020-07-19] MEDS: HALOPERIDOL 5 MG TABLET PO PRN (20:12)
[2020-07-20 08:00] VITALS: BP 135/82
[2020-07-20] MEDS: GABAPENTIN 300 MG CAPSULE PO SCH ×2 (08:15→16:14)
[2020-07-20] MEDS: LORazepam 2 MG TABLET PO PRN (08:15)
[2020-07-20] MEDS: ARIPiprazole 10 MG TABLET PO SCH ×2 (08:15→16:14)
[2020-07-20] MEDS: HALOPERIDOL 5 MG TABLET PO PRN (08:15)
[2020-07-20] MEDS: SERTRALINE HCL 50 MG TABLET PO SCH (08:15)
[2020-07-20 17:23] VITALS: BP 154/82
[2020-07-21] MEDS: SERTRALINE HCL 50 MG TABLET PO SCH (07:56)
[2020-07-21] MEDS: HALOPERIDOL 5 MG TABLET PO PRN ×2 (07:56→16:24)
[2020-07-21] MEDS: LORazepam 2 MG TABLET PO PRN ×2 (07:56→16:24)
[2020-07-21] MEDS: GABAPENTIN 300 MG CAPSULE PO SCH ×2 (07:56→16:23)
[2020-07-21] MEDS: ARIPiprazole 10 MG TABLET PO SCH ×2 (07:56→16:23)
[2020-07-21 08:12] VITALS: BP 142/77
[2020-07-21 16:00] VITALS: BP 137/74
[2020-07-22 08:00] VITALS: BP 165/88
[2020-07-22] MEDS: ARIPiprazole 10 MG TABLET PO SCH ×2 (08:08→15:58)
[2020-07-22] MEDS: GABAPENTIN 300 MG CAPSULE PO SCH ×2 (08:08→15:58)
[2020-07-22] MEDS: SERTRALINE HCL 50 MG TABLET PO SCH (08:09)
[2020-07-22] MEDS: HALOPERIDOL 5 MG TABLET PO PRN ×3 (08:10→17:35)
[2020-07-22] MEDS: LORazepam 2 MG TABLET PO PRN ×3 (08:10→17:33)
[2020-07-22 16:22] VITALS: BP 118/61
[2020-07-23] MEDS: ARIPiprazole 10 MG TABLET PO SCH ×2 (08:32→16:15)
[2020-07-23] MEDS: GABAPENTIN 300 MG CAPSULE PO SCH ×2 (08:32→16:14)
[2020-07-23] MEDS: SERTRALINE HCL 50 MG TABLET PO SCH (08:32)
[2020-07-23 09:22] VITALS: BP 139/81
[2020-07-23] MEDS: HALOPERIDOL 5 MG TABLET PO PRN (16:14)
[2020-07-23] MEDS: LORazepam 2 MG TABLET PO PRN (16:14)
[2020-07-23 16:21] VITALS: BP 140/75
[2020-07-24] MEDS: LORazepam 2 MG TABLET PO PRN (08:09)
[2020-07-24] MEDS: ARIPiprazole 10 MG TABLET PO SCH ×2 (08:09→16:07)
[2020-07-24] MEDS: SERTRALINE HCL 50 MG TABLET PO SCH (08:09)
[2020-07-24] MEDS: HALOPERIDOL 5 MG TABLET PO PRN (08:09)
[2020-07-24] MEDS: GABAPENTIN 300 MG CAPSULE PO SCH ×2 (08:09→16:07)
[2020-07-24 08:19] VITALS: BP 139/81
[2020-07-24] MEDS ORDERED: ARIP10TA8 PO (11:08)
[2020-07-24] MEDS ORDERED: GABA-1181 PO (11:08)
[2020-07-24] MEDS ORDERED: SERT50TA12 PO (11:09)
== END 2020-07-24 16:20 | disposition home or self-care (01) | DRG 750 ==
LOC: EMS 09:15 → 3EC 13:00
PROVIDERS: ADMIT Psychiatry & Neurology Child & Adolescent Psychiatry; ATTEND Psychiatry & Neurology Child & Adolescent Psychiatry
DX: F25.0 Schizoaffective disorder, bipolar type (principal); R45.850 Homicidal ideations; F12.90 Cannabis use, unspecified, uncomplicated; F41.9 Anxiety disorder, unspecified; K59.00 Constipation, unspecified; E87.6 Hypokalemia; R74.01 Elevation of levels of liver transaminase levels; F19.10 Other psychoactive substance abuse, uncomplicated; Z91.14 Patient's other noncompliance with medication regimen; R45.851 Suicidal ideations; Z79.899 Other long term (current) drug therapy; Z59.0 Homelessness; Z28.21 Immunization not carried out because of patient refusal; Z03.818 Encounter for observation for suspected exposure to other biological agents ruled out
CPT/HCPCS: 84132; 87426; 99291; G0480; J1200; J1630; J2060; Q0162

== ENCOUNTER 2021-01-16 15:28 | Inpatient (IN) | payer MEDICAID, OTHER ==
[~2021-01-16] VITALS: Ht 198.1 cm; Wt 161.7 kg
[~2021-01-16 15:28] MED LIST changes: -ARIP1064 IM; +ARIP10TA38 PO; +GABA-1181 PO; +SERT-158 PO
[2021-01-16 20:59] LABS: BASOPHILS % (AUTO) 0.6 % (0.0-2.0); EOSINOPHILS % (AUTO) 0.1 % (1.0-6.0); HEMATOCRIT 44.9 % (41-53); HEMOGLOBIN 15.5 g/dL (13.5-17.5); LYMPHOCYTES # (AUTO) 1.5 K/uL (1.0-4.8); LYMPHOCYTES % (AUTO) 10.5 % (22.0-44.0); MEAN CORPUSCULAR HEMOGLOBIN 30.7 pg (26.0-34.0); MEAN CORPUSCULAR HGB CONC 34.5 G/dL (31.0-37.0); MEAN CORPUSCULAR VOLUME 89 fL (80-100); MONOCYTES # (AUTO) 0.7 K/uL (0.1-1.0); MONOCYTES % (AUTO) 4.9 % (2.0-9.0); NEUTROPHILS # (AUTO) 12.2 K/uL (1.8-7.7); NEUTROPHILS % (AUTO) 83.9 % (40.0-70.0); PLATELET COUNT (AUTO) 229 K/uL (150-450); RED BLOOD CELL COUNT(AUTO) 5.04 MIL/uL (4.50-5.90); RED CELL DISTRIBUTION WIDTH 13.2 % (11.5-14.5)
[2021-01-16 21:00] LABS: COVID AG,FIA SOURCE NASOPHARYNGEAL
[2021-01-16 21:08] LABS: ANION GAP 11 mmol/L (8-16); CALCIUM, TOTAL 9.4 mg/dL (8.8-10.5); CARBON DIOXIDE 25 mmol/L (22-29); CHLORIDE 102 mmol/L (98-107); GLOMERULAR FILTR. RATE CALC > 60 mL/min (>60); GLUCOSE,RANDOM 108 mg/dL (70-110); POTASSIUM 3.7 mmol/L (3.5-5.1); SODIUM SERUM 138 mmol/L (136-145); UREA NITROGEN, BLOOD 11 mg/dL (7-18)
[2021-01-16 21:14] LABS: ALANINE AMINOTRANSFERASE 83 U/L (12-78); ALBUMIN 4.4 g/dL (3.4-5.0); ALKALINE PHOSPHATASE 96 U/L (46-116); ASPARTATE AMINOTRANSFERASE 33 U/L (15-37); BILIRUBIN,TOTAL 0.6 mg/dL (0.1-1.0); TOTAL PROTEIN, SERUM 8.1 g/dL (6.4-8.2)
[2021-01-16] MEDS ORDERED: HALOPERIDOL 5 MG TABLET PO PRN (21:45)
[2021-01-17 02:29] VITALS: BP 148/88
[2021-01-17] MEDS ORDERED: ONDANSETRON HCL 4 MG TABLET PO PRN (07:15)
[2021-01-17] MEDS ORDERED: IBUPROFEN 600 MG TABLET PO PRN (07:15)
[2021-01-17] MEDS ORDERED: MAGNESIUM HYDROXIDE SUSPENSION 30 ML UDCUP PO PRN (07:15)
[2021-01-17] MEDS ORDERED: MAG HYDROX/AL HYDROX/SIMETH ES 30 ML SUSPENSION UDCUP PO PRN (07:15)
[2021-01-17] MEDS ORDERED: ACETAMINOPHEN 325 MG TABLET PO PRN (07:15)
[2021-01-17] MEDS ORDERED: OMEPRAZOLE 20 MG CAPSULE PO PRN (07:15)
[2021-01-17] MEDS ORDERED: ALBUTEROL SULFATE HFA 90 MCG/PUFF 8 GM INHALER IH PRN (07:15)
[2021-01-17] MEDS ORDERED: BACITRACIN 28 GM OINTMENT TP PRN (07:15)
[2021-01-17] MEDS ORDERED: LOPERAMIDE HCL 2 MG CAPSULE PO PRN (07:15)
[2021-01-17] MEDS ORDERED: DOCUSATE SODIUM 100 MG CAPSULE PO PRN (07:15)
[2021-01-17] MEDS ORDERED: BENZOCAINE/MENTHOL LOZENGE PO PRN (07:15)
[2021-01-17] MEDS ORDERED: CloNIDine HCL 0.1 MG TABLET PO PRN (07:15)
[2021-01-17] MEDS ORDERED: PETROLATUM,WHITE 28 GM JELLY TP PRN (07:15)
[2021-01-17] MEDS: LORazepam 2 MG TABLET PO PRN ×2 (11:19→17:13)
[2021-01-17 16:13] VITALS: BP 137/77
[2021-01-17] MEDS: DIVALPROEX SODIUM 500 MG DR TABLET PO SCH (20:56)
[2021-01-17] MEDS: GABAPENTIN 400 MG CAPSULE PO SCH (20:57)
[2021-01-17] MEDS: ARIPiprazole 10 MG TABLET PO SCH (20:57)
[2021-01-18] MEDS: DIVALPROEX SODIUM 500 MG DR TABLET PO SCH ×3 (08:06→17:02)
[2021-01-18] MEDS: ARIPiprazole 10 MG TABLET PO SCH (08:06)
[2021-01-18] MEDS: GABAPENTIN 400 MG CAPSULE PO SCH ×5 (08:06→17:05)
[2021-01-18 08:23] VITALS: BP 119/73
[2021-01-18] MEDS: LORazepam 2 MG TABLET PO PRN ×2 (16:15→17:05)
[2021-01-18 16:16] VITALS: BP 127/77
[2021-01-19 00:56] VITALS: BP 130/83
[2021-01-19] MEDS: GABAPENTIN 400 MG CAPSULE PO SCH ×4 (08:12→17:11)
[2021-01-19] MEDS: ARIPiprazole 10 MG TABLET PO SCH (08:12)
[2021-01-19] MEDS: DIVALPROEX SODIUM 500 MG DR TABLET PO SCH ×3 (08:13→17:11)
[2021-01-19 08:38] VITALS: BP 118/76
[2021-01-19 16:18] VITALS: BP 147/81
[2021-01-19] MEDS: LORazepam 2 MG TABLET PO PRN (17:12)
[2021-01-19] MEDS: ZOLPIDEM TARTRATE 10 MG TABLET PO PRN (21:07)
[2021-01-20 01:26] VITALS: BP 142/85
[2021-01-20 08:55] VITALS: BP 132/91
[2021-01-20] MEDS: ARIPiprazole 10 MG TABLET PO SCH (08:56)
[2021-01-20] MEDS: LORazepam 2 MG TABLET PO PRN ×2 (08:57→16:22)
[2021-01-20] MEDS: DIVALPROEX SODIUM 500 MG DR TABLET PO SCH ×2 (08:57→16:22)
[2021-01-20] MEDS: GABAPENTIN 400 MG CAPSULE PO SCH ×3 (08:57→16:22)
[2021-01-20 16:00] VITALS: BP 156/96
[2021-01-21 01:31] VITALS: BP 158/97
[2021-01-21 08:36] VITALS: BP 103/60
[2021-01-21] MEDS: ARIPiprazole 10 MG TABLET PO SCH ×2 (09:00→10:54)
[2021-01-21] MEDS: METOPROLOL TARTRATE 50 MG TABLET PO SCH ×3 (09:00→16:12)
[2021-01-21] MEDS: DIVALPROEX SODIUM 500 MG DR TABLET PO SCH ×3 (09:00→16:12)
[2021-01-21] MEDS: GABAPENTIN 400 MG CAPSULE PO SCH ×4 (09:00→16:12)
[2021-01-21 09:05] VITALS: BP 130/86
[2021-01-21] MEDS: LORazepam 2 MG TABLET PO PRN ×2 (10:54→16:12)
[2021-01-21 16:11] VITALS: BP 142/85
[2021-01-21] MEDS: ZOLPIDEM TARTRATE 10 MG TABLET PO PRN (20:47)
[2021-01-22 04:13] VITALS: BP 124/69
[2021-01-22] MEDS: DIVALPROEX SODIUM 500 MG DR TABLET PO SCH (08:20)
[2021-01-22] MEDS: METOPROLOL TARTRATE 50 MG TABLET PO SCH (08:20)
[2021-01-22] MEDS: ARIPiprazole 10 MG TABLET PO SCH (08:20)
[2021-01-22] MEDS: GABAPENTIN 400 MG CAPSULE PO SCH ×2 (08:21→12:38)
[2021-01-22] MEDS ORDERED: GABA-1201 PO (11:29)
[2021-01-22] MEDS ORDERED: DIVA-112 PO (11:30)
[2021-01-22] MEDS ORDERED: ARIP10TA38 PO (11:31)
[2021-01-22] MEDS ORDERED: METO50 PO (11:32)
== END 2021-01-22 13:15 | disposition home or self-care (01) | DRG 750 ==
LOC: EMS 15:28 → B3A 22:00
PROVIDERS: ADMIT Psychiatry & Neurology Psychiatry; ATTEND Psychiatry & Neurology Psychiatry
DX: F20.0 Paranoid schizophrenia (principal); D72.829 Elevated white blood cell count, unspecified; Z20.822 Contact with and (suspected) exposure to COVID-19; F12.90 Cannabis use, unspecified, uncomplicated; F41.9 Anxiety disorder, unspecified
CPT/HCPCS: 80053; 85025; 87426; 99285; G0480; Q0162

== ENCOUNTER 2021-03-14 16:17 | Inpatient (IN) | payer MEDICAID, OTHER ==
[~2021-03-14] VITALS: Ht 198.1 cm; Wt 166.5 kg
[~2021-03-14 16:17] MED LIST changes: +DIVA-112 PO; -GABA-1181 PO; +GABA-1201 PO; +METO50 PO; -SERT-158 PO
[2021-03-14] MEDS ORDERED: HALOPERIDOL LACTATE 5 MG/ML VIAL IM ONE (17:00)
[2021-03-14] MEDS ORDERED: DiphenhydrAMINE HCL 50 MG/ML VIAL IM ONE (17:00)
[2021-03-14] MEDS ORDERED: LORazepam 2 MG/ML VIAL IM ONE (17:00)
[2021-03-14 17:34] LABS: BASOPHILS % (AUTO) 0.5 % (0.0-2.0); EOSINOPHILS % (AUTO) 0.8 % (1.0-6.0); HEMATOCRIT 43.5 % (41-53); LYMPHOCYTES # (AUTO) 1.3 K/uL (1.0-4.8); LYMPHOCYTES % (AUTO) 14.2 % (22.0-44.0); MEAN CORPUSCULAR HEMOGLOBIN 30.7 pg (26.0-34.0); MEAN CORPUSCULAR HGB CONC 34.4 G/dL (31.0-37.0); MEAN CORPUSCULAR VOLUME 89 fL (80-100); MONOCYTES # (AUTO) 0.6 K/uL (0.1-1.0); MONOCYTES % (AUTO) 6.8 % (2.0-9.0); NEUTROPHILS % (AUTO) 77.7 % (40.0-70.0); PLATELET COUNT (AUTO) 202 K/uL (150-450); RED BLOOD CELL COUNT(AUTO) 4.88 MIL/uL (4.50-5.90); RED CELL DISTRIBUTION WIDTH 12.9 % (11.5-14.5)
[2021-03-14 17:42] LABS: ANION GAP 11 mmol/L (8-16); CALCIUM, TOTAL 8.5 mg/dL (8.8-10.5); CARBON DIOXIDE 26 mmol/L (22-29); CHLORIDE 104 mmol/L (98-107); CREATININE 0.82 mg/dL (0.60-1.30); GLOMERULAR FILTR. RATE CALC > 60 mL/min (>60); GLUCOSE,RANDOM 104 mg/dL (70-110); POTASSIUM 3.4 mmol/L (3.5-5.1); SODIUM SERUM 141 mmol/L (136-145); UREA NITROGEN, BLOOD 13 mg/dL (7-18)
[2021-03-14 17:56] LABS: ALANINE AMINOTRANSFERASE 92 U/L (12-78); ALBUMIN 3.8 g/dL (3.4-5.0); ALKALINE PHOSPHATASE 95 U/L (46-116); ASPARTATE AMINOTRANSFERASE 47 U/L (15-37); BILIRUBIN,TOTAL 0.6 mg/dL (0.1-1.0); CHOL/HDL RATIO 3.8 (4.2-7.3); CHOLESTEROL 125 mg/dL (131-200); FREE T4 (FREE THYROXINE) 1.56 ng/dL (0.76-1.46); HDL CHOLESTEROL 33 mg/dL (40-60); LDL CHOL (CALC.) 75 mg/dL (0-130); THYROID STIMULATING HORMONE 0.43 uIU/mL (0.36-3.74); TOTAL PROTEIN, SERUM 7.6 g/dL (6.4-8.2); TRIGLYCERIDES 83 mg/dL (15-150)
[2021-03-14 18:10] LABS: COVID AG,FIA SOURCE NASOPHARYNGEAL
[2021-03-14] MEDS ORDERED: POTASSIUM CHLORIDE 10% 40 MEQ/30 ML LIQUID UDCUP PO ONE (18:30)
[2021-03-14] MEDS ORDERED: ACETAMINOPHEN 325 MG TABLET PO PRN (18:30)
[2021-03-14 19:00] VITALS: BP 146/78
[2021-03-14] MEDS ORDERED: ALBUTEROL SULFATE HFA 90 MCG/PUFF 8 GM INHALER IH PRN (20:15)
[2021-03-14] MEDS ORDERED: MAG HYDROX/AL HYDROX/SIMETH ES 30 ML SUSPENSION UDCUP PO PRN (20:15)
[2021-03-14] MEDS ORDERED: PETROLATUM,WHITE 28 GM JELLY TP PRN (20:15)
[2021-03-14] MEDS ORDERED: GuaiFENesin/D-METHORPHAN [SUGAR-FREE] 200-20MG/10 ML SYRUP UDCUP PO PRN (20:15)
[2021-03-14] MEDS ORDERED: POTASSIUM CHLORIDE 20 MEQ ER TABLET PO ONE (20:15)
[2021-03-14] MEDS ORDERED: LOPERAMIDE HCL 2 MG CAPSULE PO PRN (20:15)
[2021-03-14] MEDS ORDERED: NICOTINE 14 MG/24 HOUR PATCH TD PRN (20:15)
[2021-03-14] MEDS ORDERED: IBUPROFEN 400 MG TABLET PO PRN (20:15)
[2021-03-14] MEDS ORDERED: ONDANSETRON HCL 4 MG TABLET PO PRN (20:15)
[2021-03-14] MEDS ORDERED: MAGNESIUM HYDROXIDE SUSPENSION 30 ML UDCUP PO PRN (20:15)
[2021-03-14] MEDS ORDERED: DOCUSATE SODIUM 100 MG CAPSULE PO PRN (20:15)
[2021-03-15] MEDS ORDERED: GuaiFENesin/D-METHORPHAN [SUGAR-FREE] 200-20MG/10 ML SYRUP UDCUP PO PRN (07:00)
[2021-03-15] MEDS ORDERED: DOCUSATE SODIUM 100 MG CAPSULE PO PRN (07:00)
[2021-03-15] MEDS ORDERED: LOPERAMIDE HCL 2 MG CAPSULE PO PRN (07:00)
[2021-03-15] MEDS ORDERED: NICOTINE 14 MG/24 HOUR PATCH TD PRN (07:00)
[2021-03-15] MEDS ORDERED: MAGNESIUM HYDROXIDE SUSPENSION 30 ML UDCUP PO PRN (07:00)
[2021-03-15] MEDS ORDERED: CloNIDine HCL 0.1 MG TABLET PO PRN (07:00)
[2021-03-15] MEDS ORDERED: ACETAMINOPHEN 325 MG TABLET PO PRN (07:00)
[2021-03-15] MEDS ORDERED: ONDANSETRON HCL 4 MG TABLET PO PRN (07:00)
[2021-03-15] MEDS ORDERED: PETROLATUM,WHITE 28 GM JELLY TP PRN (07:00)
[2021-03-15] MEDS ORDERED: MAG HYDROX/AL HYDROX/SIMETH ES 30 ML SUSPENSION UDCUP PO PRN (07:00)
[2021-03-15] MEDS ORDERED: ALBUTEROL SULFATE HFA 90 MCG/PUFF 8 GM INHALER IH PRN (07:00)
[2021-03-15] MEDS: GABAPENTIN 400 MG CAPSULE PO SCH ×6 (09:00→17:17)
[2021-03-15] MEDS: METOPROLOL TARTRATE 50 MG TABLET PO SCH ×4 (09:00→17:17)
[2021-03-15] MEDS ORDERED: HALOPERIDOL LACTATE 5 MG/ML VIAL ONE (11:27)
[2021-03-15] MEDS ORDERED: LORazepam 2 MG/ML VIAL ONE (11:27)
[2021-03-15] MEDS ORDERED: DiphenhydrAMINE HCL 50 MG/ML VIAL ONE (11:28)
[2021-03-15] MEDS ORDERED: HALOPERIDOL LACTATE 5 MG/ML VIAL IM ONE (11:30)
[2021-03-15] MEDS ORDERED: LORazepam 2 MG/ML VIAL IM ONE (11:30)
[2021-03-15] MEDS ORDERED: DiphenhydrAMINE HCL 50 MG/ML VIAL IM ONE (11:30)
[2021-03-15] MEDS: DIVALPROEX SODIUM 500 MG DR TABLET PO SCH (20:32)
[2021-03-15] MEDS: OLANZapine 5 MG TABLET PO SCH (20:32)
[2021-03-16] MEDS: METOPROLOL TARTRATE 50 MG TABLET PO SCH ×2 (09:36→16:20)
[2021-03-16] MEDS: DIVALPROEX SODIUM 500 MG DR TABLET PO SCH ×2 (09:36→20:47)
[2021-03-16] MEDS: OLANZapine 5 MG TABLET PO SCH ×2 (09:37→20:47)
[2021-03-16] MEDS: GABAPENTIN 400 MG CAPSULE PO SCH ×3 (09:37→16:20)
[2021-03-16] MEDS: LORazepam 2 MG TABLET PO PRN ×2 (09:38→19:31)
[2021-03-16 16:23] VITALS: BP 124/64
[2021-03-16] MEDS: ZOLPIDEM TARTRATE 10 MG TABLET PO PRN (22:02)
[2021-03-17] MEDS: DIVALPROEX SODIUM 500 MG DR TABLET PO SCH ×2 (09:53→20:10)
[2021-03-17] MEDS: METOPROLOL TARTRATE 50 MG TABLET PO SCH ×2 (09:53→16:06)
[2021-03-17] MEDS: LORazepam 2 MG TABLET PO PRN ×3 (09:53→18:56)
[2021-03-17] MEDS: GABAPENTIN 400 MG CAPSULE PO SCH ×4 (09:53→16:17)
[2021-03-17] MEDS: OLANZapine 5 MG TABLET PO SCH ×2 (09:54→20:09)
[2021-03-17] MEDS: ZOLPIDEM TARTRATE 10 MG TABLET PO PRN (20:49)
[2021-03-18] MEDS: OLANZapine 5 MG TABLET PO SCH ×3 (09:00→20:32)
[2021-03-18] MEDS: GABAPENTIN 400 MG CAPSULE PO SCH ×4 (09:00→16:19)
[2021-03-18] MEDS: DIVALPROEX SODIUM 500 MG DR TABLET PO SCH ×3 (09:00→20:32)
[2021-03-18] MEDS: METOPROLOL TARTRATE 50 MG TABLET PO SCH ×3 (09:00→16:19)
[2021-03-18] MEDS: LORazepam 2 MG TABLET PO PRN (13:19)
[2021-03-19] MEDS: LORazepam 2 MG TABLET PO PRN ×4 (07:58→22:50)
[2021-03-19] MEDS: GABAPENTIN 400 MG CAPSULE PO SCH ×3 (07:58→16:45)
[2021-03-19] MEDS: METOPROLOL TARTRATE 50 MG TABLET PO SCH ×2 (07:58→16:45)
[2021-03-19] MEDS: OLANZapine 5 MG TABLET PO SCH ×2 (07:58→20:08)
[2021-03-19] MEDS: DIVALPROEX SODIUM 500 MG DR TABLET PO SCH ×2 (07:58→20:08)
[2021-03-19] MEDS: ZOLPIDEM TARTRATE 10 MG TABLET PO PRN (20:08)
[2021-03-20] MEDS: OLANZapine 5 MG TABLET PO SCH ×2 (08:48→21:00)
[2021-03-20] MEDS: METOPROLOL TARTRATE 50 MG TABLET PO SCH ×3 (08:48→17:25)
[2021-03-20] MEDS: LORazepam 2 MG TABLET PO PRN (08:48)
[2021-03-20] MEDS: GABAPENTIN 400 MG CAPSULE PO SCH ×4 (08:48→17:26)
[2021-03-20] MEDS: DIVALPROEX SODIUM 500 MG DR TABLET PO SCH ×2 (08:49→21:00)
[2021-03-20] MEDS ORDERED: DiphenhydrAMINE HCL 50 MG/ML VIAL IM ONE (18:15)
[2021-03-20] MEDS ORDERED: LORazepam 2 MG/ML VIAL IM ONE (18:15)
[2021-03-20] MEDS ORDERED: HALOPERIDOL LACTATE 5 MG/ML VIAL IM ONE (18:15)
[2021-03-21] MEDS: DIVALPROEX SODIUM 500 MG DR TABLET PO SCH ×2 (09:56→20:59)
[2021-03-21] MEDS: OLANZapine 5 MG TABLET PO SCH ×2 (09:56→20:59)
[2021-03-21] MEDS: METOPROLOL TARTRATE 50 MG TABLET PO SCH ×3 (09:56→16:57)
[2021-03-21] MEDS: LORazepam 2 MG TABLET PO PRN ×3 (09:57→20:59)
[2021-03-21] MEDS: GABAPENTIN 400 MG CAPSULE PO SCH ×3 (09:57→14:34)
[2021-03-22] MEDS: METOPROLOL TARTRATE 50 MG TABLET PO SCH ×2 (08:59→16:20)
[2021-03-22] MEDS: OLANZapine 5 MG TABLET PO SCH ×2 (09:00→20:16)
[2021-03-22] MEDS: DIVALPROEX SODIUM 500 MG DR TABLET PO SCH ×2 (09:04→20:16)
[2021-03-22] MEDS: GABAPENTIN 400 MG CAPSULE PO SCH ×3 (09:04→16:20)
[2021-03-22] MEDS: LORazepam 2 MG TABLET PO PRN ×4 (09:04→23:05)
[2021-03-22] MEDS: HALOPERIDOL 5 MG TABLET PO PRN (23:05)
[2021-03-23] MEDS: OLANZapine 5 MG TABLET PO SCH ×2 (11:25→20:23)
[2021-03-23] MEDS: METOPROLOL TARTRATE 50 MG TABLET PO SCH ×2 (11:26→17:55)
[2021-03-23] MEDS: LORazepam 2 MG TABLET PO PRN ×2 (11:26→16:53)
[2021-03-23] MEDS: GABAPENTIN 400 MG CAPSULE PO SCH ×3 (11:26→16:52)
[2021-03-23] MEDS: HALOPERIDOL 5 MG TABLET PO PRN ×2 (11:26→16:53)
[2021-03-23] MEDS: DIVALPROEX SODIUM 500 MG DR TABLET PO SCH ×2 (11:27→20:23)
[2021-03-23 17:55] VITALS: BP 148/90
[2021-03-24] MEDS: GABAPENTIN 400 MG CAPSULE PO SCH ×3 (08:47→17:00)
[2021-03-24] MEDS: DIVALPROEX SODIUM 500 MG DR TABLET PO SCH ×2 (08:48→20:59)
[2021-03-24] MEDS: OLANZapine 5 MG TABLET PO SCH ×2 (08:48→20:59)
[2021-03-24] MEDS: HALOPERIDOL 5 MG TABLET PO PRN ×2 (08:48→13:24)
[2021-03-24] MEDS: LORazepam 2 MG TABLET PO PRN ×2 (08:48→13:24)
[2021-03-24] MEDS: METOPROLOL TARTRATE 50 MG TABLET PO SCH ×2 (08:48→17:00)
[2021-03-24 08:51] VITALS: BP 160/87
[2021-03-24] MEDS ORDERED: LORazepam 2 MG/ML VIAL ONE (16:22)
[2021-03-24] MEDS ORDERED: DiphenhydrAMINE HCL 50 MG/ML VIAL ONE (16:22)
[2021-03-24] MEDS ORDERED: HALOPERIDOL LACTATE 5 MG/ML VIAL ONE (16:23)
[2021-03-24] MEDS ORDERED: DiphenhydrAMINE HCL 50 MG/ML VIAL IM ONE (19:00)
[2021-03-24] MEDS ORDERED: LORazepam 2 MG/ML VIAL IM ONE (19:00)
[2021-03-24] MEDS ORDERED: HALOPERIDOL LACTATE 5 MG/ML VIAL IM ONE (19:00)
[2021-03-24 19:30] VITALS: BP 139/71
[2021-03-24] MEDS: ZOLPIDEM TARTRATE 10 MG TABLET PO PRN (20:59)
[2021-03-25] MEDS: GABAPENTIN 400 MG CAPSULE PO SCH ×3 (09:00→16:33)
[2021-03-25] MEDS: OLANZapine 5 MG TABLET PO SCH (09:00)
[2021-03-25] MEDS: DIVALPROEX SODIUM 500 MG DR TABLET PO SCH ×2 (09:00→20:46)
[2021-03-25] MEDS: METOPROLOL TARTRATE 50 MG TABLET PO SCH ×2 (09:00→16:33)
[2021-03-25 10:47] VITALS: BP 142/87
[2021-03-25] MEDS ORDERED: DiphenhydrAMINE HCL 50 MG/ML VIAL ONE (16:19)
[2021-03-25] MEDS ORDERED: HALOPERIDOL LACTATE 5 MG/ML VIAL ONE (16:19)
[2021-03-25] MEDS ORDERED: LORazepam 2 MG/ML VIAL ONE (16:19)
[2021-03-25] MEDS ORDERED: LORazepam 2 MG/ML VIAL IM ONE ×2 (16:30→22:45)
[2021-03-25] MEDS ORDERED: HALOPERIDOL LACTATE 5 MG/ML VIAL IM ONE ×2 (16:30→22:45)
[2021-03-25] MEDS ORDERED: DiphenhydrAMINE HCL 50 MG/ML VIAL IM ONE ×2 (16:30→22:45)
[2021-03-25] MEDS: OLANZapine 10 MG TABLET PO SCH (20:46)
[2021-03-26] MEDS: DIVALPROEX SODIUM 500 MG DR TABLET PO SCH ×2 (08:48→20:42)
[2021-03-26] MEDS: GABAPENTIN 400 MG CAPSULE PO SCH ×3 (08:48→17:00)
[2021-03-26] MEDS: METOPROLOL TARTRATE 50 MG TABLET PO SCH ×2 (08:48→17:00)
[2021-03-26] MEDS: OLANZapine 10 MG TABLET PO SCH ×2 (08:48→20:42)
[2021-03-26] MEDS ORDERED: HALOPERIDOL LACTATE 5 MG/ML VIAL ONE (17:48)
[2021-03-26] MEDS ORDERED: LORazepam 2 MG/ML VIAL ONE (17:48)
[2021-03-26] MEDS ORDERED: DiphenhydrAMINE HCL 50 MG/ML VIAL ONE (17:48)
[2021-03-26] MEDS ORDERED: HALOPERIDOL LACTATE 5 MG/ML VIAL IM ONE (18:00)
[2021-03-26] MEDS ORDERED: LORazepam 2 MG/ML VIAL IM ONE (18:00)
[2021-03-26] MEDS ORDERED: DiphenhydrAMINE HCL 50 MG/ML VIAL IM ONE (18:00)
[2021-03-26] MEDS: ZOLPIDEM TARTRATE 10 MG TABLET PO PRN (20:42)
[2021-03-27] MEDS: OLANZapine 10 MG TABLET PO SCH ×2 (09:22→20:19)
[2021-03-27] MEDS: GABAPENTIN 400 MG CAPSULE PO SCH ×3 (09:22→16:13)
[2021-03-27] MEDS: DIVALPROEX SODIUM 500 MG DR TABLET PO SCH ×2 (09:22→20:19)
[2021-03-27] MEDS: METOPROLOL TARTRATE 50 MG TABLET PO SCH ×2 (09:23→16:13)
[2021-03-27 13:05] VITALS: BP 149/77
[2021-03-27] MEDS: LORazepam 2 MG TABLET PO PRN ×2 (16:13→20:19)
[2021-03-27] MEDS: HALOPERIDOL 5 MG TABLET PO PRN (16:13)
[2021-03-27 16:35] VITALS: BP 140/78
[2021-03-27] MEDS: ZOLPIDEM TARTRATE 10 MG TABLET PO PRN (20:19)
[2021-03-28] MEDS: OLANZapine 10 MG TABLET PO SCH ×2 (09:44→20:52)
[2021-03-28] MEDS: GABAPENTIN 400 MG CAPSULE PO SCH ×3 (09:44→16:08)
[2021-03-28] MEDS: DIVALPROEX SODIUM 500 MG DR TABLET PO SCH ×2 (09:44→20:52)
[2021-03-28] MEDS: METOPROLOL TARTRATE 50 MG TABLET PO SCH ×2 (09:44→16:08)
[2021-03-28] MEDS: LORazepam 2 MG TABLET PO PRN ×2 (14:50→18:50)
[2021-03-28] MEDS: HALOPERIDOL 5 MG TABLET PO PRN (16:08)
[2021-03-28 16:24] VITALS: BP 130/90
[2021-03-28] MEDS: ZOLPIDEM TARTRATE 10 MG TABLET PO PRN (20:52)
[2021-03-29 00:30] VITALS: BP 141/78
[2021-03-29 08:24] VITALS: BP 150/86
[2021-03-29] MEDS: GABAPENTIN 400 MG CAPSULE PO SCH ×3 (09:39→16:40)
[2021-03-29] MEDS: DIVALPROEX SODIUM 500 MG DR TABLET PO SCH ×2 (09:40→20:39)
[2021-03-29] MEDS: HALOPERIDOL 5 MG TABLET PO PRN (09:40)
[2021-03-29] MEDS: OLANZapine 10 MG TABLET PO SCH ×2 (09:40→20:39)
[2021-03-29] MEDS: METOPROLOL TARTRATE 50 MG TABLET PO SCH ×2 (09:40→16:40)
[2021-03-29] MEDS: LORazepam 2 MG TABLET PO PRN (12:06)
[2021-03-29 16:14] VITALS: BP 132/84
[2021-03-29] MEDS: ZOLPIDEM TARTRATE 10 MG TABLET PO PRN (20:39)
[2021-03-30 00:34] VITALS: BP 144/85
[2021-03-30 08:45] VITALS: BP 140/80
[2021-03-30] MEDS: GABAPENTIN 400 MG CAPSULE PO SCH ×4 (09:00→17:27)
[2021-03-30] MEDS: DIVALPROEX SODIUM 500 MG DR TABLET PO SCH ×2 (09:00→20:21)
[2021-03-30] MEDS: OLANZapine 10 MG TABLET PO SCH ×2 (09:00→20:21)
[2021-03-30] MEDS: METOPROLOL TARTRATE 50 MG TABLET PO SCH ×3 (09:00→17:27)
[2021-03-30] MEDS: IBUPROFEN 400 MG TABLET PO PRN (11:40)
[2021-03-30 16:36] VITALS: BP 141/84
[2021-03-30] MEDS: LORazepam 2 MG TABLET PO PRN ×2 (17:27→21:41)
[2021-03-30] MEDS: ZOLPIDEM TARTRATE 10 MG TABLET PO PRN (20:21)
[2021-03-31 01:11] VITALS: BP 140/82
[2021-03-31] MEDS: GABAPENTIN 400 MG CAPSULE PO SCH ×4 (08:47→17:00)
[2021-03-31] MEDS: OLANZapine 10 MG TABLET PO SCH ×2 (08:47→20:40)
[2021-03-31] MEDS: DIVALPROEX SODIUM 500 MG DR TABLET PO SCH ×2 (08:48→20:40)
[2021-03-31] MEDS: LORazepam 2 MG TABLET PO PRN ×3 (08:48→20:40)
[2021-03-31] MEDS: METOPROLOL TARTRATE 50 MG TABLET PO SCH ×2 (08:48→17:00)
[2021-03-31] MEDS: HALOPERIDOL 5 MG TABLET PO PRN (12:42)
[2021-04-01 02:25] VITALS: BP 130/84
[2021-04-01] MEDS: METOPROLOL TARTRATE 50 MG TABLET PO SCH ×2 (09:00→16:26)
[2021-04-01] MEDS: OLANZapine 10 MG TABLET PO SCH ×2 (09:00→20:28)
[2021-04-01] MEDS: GABAPENTIN 400 MG CAPSULE PO SCH ×3 (09:00→16:25)
[2021-04-01] MEDS: DIVALPROEX SODIUM 500 MG DR TABLET PO SCH ×2 (09:00→20:28)
[2021-04-01] MEDS: HALOPERIDOL 5 MG TABLET PO PRN ×2 (12:19→16:26)
[2021-04-01] MEDS: LORazepam 2 MG TABLET PO PRN ×2 (12:19→16:26)
[2021-04-01 17:38] VITALS: BP 130/86
[2021-04-01] MEDS: ZOLPIDEM TARTRATE 10 MG TABLET PO PRN (20:28)
[2021-04-02 00:05] VITALS: BP 125/63
[2021-04-02] MEDS: DIVALPROEX SODIUM 500 MG DR TABLET PO SCH ×2 (09:08→21:53)
[2021-04-02] MEDS: METOPROLOL TARTRATE 50 MG TABLET PO SCH ×2 (09:08→17:01)
[2021-04-02] MEDS: GABAPENTIN 400 MG CAPSULE PO SCH ×3 (09:08→17:02)
[2021-04-02] MEDS: OLANZapine 10 MG TABLET PO SCH ×2 (09:09→21:53)
[2021-04-02] MEDS: LORazepam 2 MG TABLET PO PRN ×2 (09:09→13:24)
[2021-04-02] MEDS: HALOPERIDOL 5 MG TABLET PO PRN ×2 (09:09→17:02)
[2021-04-02] MEDS: ZOLPIDEM TARTRATE 10 MG TABLET PO PRN (21:53)
[2021-04-03 05:14] VITALS: BP 126/76
[2021-04-03 08:26] VITALS: BP 124/79
[2021-04-03] MEDS: DIVALPROEX SODIUM 500 MG DR TABLET PO SCH ×2 (09:05→20:25)
[2021-04-03] MEDS: OLANZapine 10 MG TABLET PO SCH ×2 (09:05→20:25)
[2021-04-03] MEDS: GABAPENTIN 400 MG CAPSULE PO SCH ×3 (09:06→16:51)
[2021-04-03] MEDS: LORazepam 2 MG TABLET PO PRN ×3 (09:06→20:25)
[2021-04-03] MEDS: METOPROLOL TARTRATE 50 MG TABLET PO SCH ×2 (09:06→16:51)
[2021-04-03] MEDS: HALOPERIDOL 5 MG TABLET PO PRN ×2 (09:06→13:09)
[2021-04-03 16:17] VITALS: BP 136/72
[2021-04-04 05:16] VITALS: BP 128/74
[2021-04-04] MEDS: OLANZapine 10 MG TABLET PO SCH ×2 (09:20→20:21)
[2021-04-04] MEDS: METOPROLOL TARTRATE 50 MG TABLET PO SCH ×2 (09:20→16:59)
[2021-04-04] MEDS: GABAPENTIN 400 MG CAPSULE PO SCH ×3 (09:20→17:00)
[2021-04-04] MEDS: DIVALPROEX SODIUM 500 MG DR TABLET PO SCH ×2 (09:21→20:21)
[2021-04-04] MEDS: LORazepam 2 MG TABLET PO PRN ×2 (09:22→20:22)
[2021-04-04 09:36] VITALS: BP 115/62
[2021-04-04 09:38] VITALS: BP 115/62
[2021-04-04 16:15] VITALS: BP 118/64
[2021-04-04] MEDS: ZOLPIDEM TARTRATE 10 MG TABLET PO PRN (20:21)
[2021-04-05 04:30] VITALS: BP 114/62
[2021-04-05] MEDS: GABAPENTIN 400 MG CAPSULE PO SCH ×3 (08:52→17:00)
[2021-04-05] MEDS: METOPROLOL TARTRATE 50 MG TABLET PO SCH ×2 (08:52→17:00)
[2021-04-05] MEDS: OLANZapine 10 MG TABLET PO SCH ×2 (08:52→20:27)
[2021-04-05] MEDS: DIVALPROEX SODIUM 500 MG DR TABLET PO SCH ×2 (08:52→20:27)
[2021-04-05 09:19] VITALS: BP 103/69
[2021-04-05 16:27] VITALS: BP 133/76
[2021-04-05] MEDS: LORazepam 2 MG TABLET PO PRN (20:27)
[2021-04-05] MEDS: ZOLPIDEM TARTRATE 10 MG TABLET PO PRN (20:39)
[2021-04-06 06:13] VITALS: BP 136/82
[2021-04-06] MEDS: METOPROLOL TARTRATE 50 MG TABLET PO SCH ×3 (09:00→17:01)
[2021-04-06] MEDS: GABAPENTIN 400 MG CAPSULE PO SCH ×4 (09:00→17:00)
[2021-04-06] MEDS: DIVALPROEX SODIUM 500 MG DR TABLET PO SCH ×3 (09:00→20:16)
[2021-04-06] MEDS: OLANZapine 10 MG TABLET PO SCH ×3 (09:00→20:15)
[2021-04-06 11:10] VITALS: BP 152/88
[2021-04-06] MEDS: HALOPERIDOL 5 MG TABLET PO PRN ×2 (11:46→22:23)
[2021-04-06] MEDS: LORazepam 2 MG TABLET PO PRN ×2 (11:46→20:15)
[2021-04-06 17:21] VITALS: BP 136/85
[2021-04-06] MEDS: ZOLPIDEM TARTRATE 10 MG TABLET PO PRN (22:23)
[2021-04-07 05:42] VITALS: BP 135/78
[2021-04-07] MEDS: OLANZapine 10 MG TABLET PO SCH ×2 (09:00→21:26)
[2021-04-07] MEDS: METOPROLOL TARTRATE 50 MG TABLET PO SCH ×2 (09:00→17:25)
[2021-04-07] MEDS: GABAPENTIN 400 MG CAPSULE PO SCH ×3 (09:00→17:25)
[2021-04-07] MEDS: DIVALPROEX SODIUM 500 MG DR TABLET PO SCH ×2 (09:00→21:26)
[2021-04-07 16:41] VITALS: BP 129/82
[2021-04-07] MEDS: LORazepam 2 MG TABLET PO PRN (17:25)
[2021-04-07] MEDS: HALOPERIDOL 5 MG TABLET PO PRN (17:25)
[2021-04-08 01:07] VITALS: BP 150/96
[2021-04-08] MEDS: LORazepam 2 MG TABLET PO PRN ×2 (08:25→16:56)
[2021-04-08] MEDS: OLANZapine 10 MG TABLET PO SCH ×2 (08:46→20:34)
[2021-04-08] MEDS: DIVALPROEX SODIUM 500 MG DR TABLET PO SCH ×2 (08:47→20:35)
[2021-04-08] MEDS: GABAPENTIN 400 MG CAPSULE PO SCH ×3 (08:47→16:55)
[2021-04-08] MEDS: METOPROLOL TARTRATE 50 MG TABLET PO SCH ×2 (08:47→16:56)
[2021-04-08 09:24] VITALS: BP 117/70
[2021-04-08 16:21] VITALS: BP 114/64
[2021-04-08] MEDS: HALOPERIDOL 5 MG TABLET PO PRN (16:56)
[2021-04-08] MEDS: ZOLPIDEM TARTRATE 10 MG TABLET PO PRN (20:34)
[2021-04-09] MEDS: LORazepam 2 MG TABLET PO PRN ×3 (08:30→20:15)
[2021-04-09 08:41] VITALS: BP 156/81
[2021-04-09] MEDS: GABAPENTIN 400 MG CAPSULE PO SCH ×3 (08:45→16:04)
[2021-04-09] MEDS: OLANZapine 10 MG TABLET PO SCH ×2 (08:45→20:15)
[2021-04-09] MEDS: METOPROLOL TARTRATE 50 MG TABLET PO SCH ×2 (08:45→16:04)
[2021-04-09] MEDS: DIVALPROEX SODIUM 500 MG DR TABLET PO SCH ×2 (08:45→20:15)
[2021-04-09] MEDS: HALOPERIDOL 5 MG TABLET PO PRN (16:04)
[2021-04-09 16:18] VITALS: BP 112/71
[2021-04-09] MEDS: ZOLPIDEM TARTRATE 10 MG TABLET PO PRN (20:15)
[2021-04-10 06:30] VITALS: BP 118/71
[2021-04-10] MEDS: OLANZapine 10 MG TABLET PO SCH ×2 (08:26→20:45)
[2021-04-10] MEDS: DIVALPROEX SODIUM 500 MG DR TABLET PO SCH ×2 (08:26→20:45)
[2021-04-10] MEDS: LORazepam 2 MG TABLET PO PRN ×3 (08:26→16:53)
[2021-04-10] MEDS: METOPROLOL TARTRATE 50 MG TABLET PO SCH ×2 (08:26→16:53)
[2021-04-10] MEDS: GABAPENTIN 400 MG CAPSULE PO SCH ×3 (08:26→16:53)
[2021-04-10] MEDS: HALOPERIDOL 5 MG TABLET PO PRN ×2 (12:31→16:53)
[2021-04-10 16:41] VITALS: BP 116/71
[2021-04-10] MEDS: ZOLPIDEM TARTRATE 10 MG TABLET PO PRN (20:45)
[2021-04-11 04:04] VITALS: BP 118/76
[2021-04-11] MEDS: LORazepam 2 MG TABLET PO PRN ×2 (08:33→16:47)
[2021-04-11] MEDS: METOPROLOL TARTRATE 50 MG TABLET PO SCH ×2 (08:33→16:47)
[2021-04-11] MEDS: GABAPENTIN 400 MG CAPSULE PO SCH ×3 (08:33→16:47)
[2021-04-11] MEDS: DIVALPROEX SODIUM 500 MG DR TABLET PO SCH ×2 (08:33→20:52)
[2021-04-11] MEDS: OLANZapine 10 MG TABLET PO SCH ×2 (08:33→20:52)
[2021-04-11 08:39] VITALS: BP 132/78
[2021-04-11 16:26] VITALS: BP 118/71
[2021-04-11] MEDS: ZOLPIDEM TARTRATE 10 MG TABLET PO PRN (20:52)
[2021-04-12 00:30] VITALS: BP 120/70
[2021-04-12] MEDS: HALOPERIDOL 5 MG TABLET PO PRN ×2 (08:35→14:49)
[2021-04-12] MEDS: LORazepam 2 MG TABLET PO PRN ×3 (08:35→21:39)
[2021-04-12] MEDS: METOPROLOL TARTRATE 50 MG TABLET PO SCH ×2 (08:54→17:26)
[2021-04-12] MEDS: OLANZapine 10 MG TABLET PO SCH ×2 (08:54→21:30)
[2021-04-12] MEDS: GABAPENTIN 400 MG CAPSULE PO SCH ×3 (08:54→17:26)
[2021-04-12] MEDS: DIVALPROEX SODIUM 500 MG DR TABLET PO SCH ×2 (08:54→21:30)
[2021-04-12 16:27] VITALS: BP 117/78
[2021-04-12] MEDS: ZOLPIDEM TARTRATE 10 MG TABLET PO PRN (21:39)
[2021-04-13 05:19] VITALS: BP 115/74
[2021-04-13 08:14] VITALS: BP 124/82
[2021-04-13] MEDS: LORazepam 2 MG TABLET PO PRN ×2 (09:44→17:09)
[2021-04-13] MEDS: GABAPENTIN 400 MG CAPSULE PO SCH ×3 (09:44→17:08)
[2021-04-13] MEDS: DIVALPROEX SODIUM 500 MG DR TABLET PO SCH ×2 (09:44→20:25)
[2021-04-13] MEDS: OLANZapine 10 MG TABLET PO SCH ×2 (09:44→20:25)
[2021-04-13] MEDS: METOPROLOL TARTRATE 50 MG TABLET PO SCH ×2 (09:44→17:09)
[2021-04-13] MEDS: HALOPERIDOL 5 MG TABLET PO PRN ×2 (09:44→17:09)
[2021-04-13 16:24] VITALS: BP 134/92
[2021-04-13] MEDS: ZOLPIDEM TARTRATE 10 MG TABLET PO PRN (20:26)
[2021-04-13] MEDS ORDERED: HALOPERIDOL LACTATE 5 MG/ML VIAL ONE (23:23)
[2021-04-13] MEDS ORDERED: LORazepam 2 MG/ML VIAL IM ONE (23:30)
[2021-04-13] MEDS ORDERED: DiphenhydrAMINE HCL 50 MG/ML VIAL IM ONE (23:30)
[2021-04-13] MEDS ORDERED: HALOPERIDOL LACTATE 5 MG/ML VIAL IM ONE (23:30)
[2021-04-14 03:25] VITALS: BP 141/69
[2021-04-14] MEDS: METOPROLOL TARTRATE 50 MG TABLET PO SCH ×2 (09:00→17:03)
[2021-04-14] MEDS: GABAPENTIN 400 MG CAPSULE PO SCH ×4 (09:00→17:03)
[2021-04-14] MEDS: OLANZapine 10 MG TABLET PO SCH ×2 (09:00→20:50)
[2021-04-14] MEDS: DIVALPROEX SODIUM 500 MG DR TABLET PO SCH ×2 (09:00→20:50)
[2021-04-14 09:09] VITALS: BP 138/84
[2021-04-14] MEDS: LORazepam 2 MG TABLET PO PRN ×2 (14:29→20:50)
[2021-04-14] MEDS: HALOPERIDOL 5 MG TABLET PO PRN (17:03)
[2021-04-14] MEDS: ZOLPIDEM TARTRATE 10 MG TABLET PO PRN (20:51)
[2021-04-15 04:19] VITALS: BP 132/73
[2021-04-15 08:44] VITALS: BP 131/83
[2021-04-15] MEDS: GABAPENTIN 400 MG CAPSULE PO SCH ×3 (09:31→16:06)
[2021-04-15] MEDS: DIVALPROEX SODIUM 500 MG DR TABLET PO SCH ×2 (09:31→21:00)
[2021-04-15] MEDS: OLANZapine 10 MG TABLET PO SCH ×2 (09:31→21:00)
[2021-04-15] MEDS: LORazepam 2 MG TABLET PO PRN (09:31)
[2021-04-15] MEDS: METOPROLOL TARTRATE 50 MG TABLET PO SCH ×2 (09:32→16:06)
[2021-04-15 17:41] VITALS: BP 134/83
[2021-04-15] MEDS: ZOLPIDEM TARTRATE 10 MG TABLET PO PRN (21:00)
[2021-04-16 06:27] VITALS: BP 147/80
[2021-04-16] MEDS: OLANZapine 10 MG TABLET PO SCH ×2 (08:13→20:20)
[2021-04-16] MEDS: METOPROLOL TARTRATE 50 MG TABLET PO SCH ×2 (08:13→16:32)
[2021-04-16] MEDS: LORazepam 2 MG TABLET PO PRN ×2 (08:13→16:32)
[2021-04-16] MEDS: GABAPENTIN 400 MG CAPSULE PO SCH ×3 (08:13→16:32)
[2021-04-16] MEDS: DIVALPROEX SODIUM 500 MG DR TABLET PO SCH ×2 (08:13→20:20)
[2021-04-16 09:19] VITALS: BP 138/85
[2021-04-16 17:46] VITALS: BP 134/82
[2021-04-16] MEDS: ZOLPIDEM TARTRATE 10 MG TABLET PO PRN (20:32)
[2021-04-17 08:10] VITALS: BP 154/89
[2021-04-17] MEDS: DIVALPROEX SODIUM 500 MG DR TABLET PO SCH ×2 (08:15→20:29)
[2021-04-17] MEDS: METOPROLOL TARTRATE 50 MG TABLET PO SCH ×2 (08:16→16:22)
[2021-04-17] MEDS: GABAPENTIN 400 MG CAPSULE PO SCH ×3 (08:16→16:22)
[2021-04-17] MEDS: OLANZapine 10 MG TABLET PO SCH ×2 (08:16→20:29)
[2021-04-17] MEDS: IBUPROFEN 400 MG TABLET PO PRN (10:42)
[2021-04-17] MEDS: HALOPERIDOL 5 MG TABLET PO PRN (16:23)
[2021-04-17] MEDS: LORazepam 2 MG TABLET PO PRN ×2 (16:23→20:29)
[2021-04-17 16:32] VITALS: BP 137/85
[2021-04-17] MEDS: ZOLPIDEM TARTRATE 10 MG TABLET PO PRN (20:29)
[2021-04-18 00:32] VITALS: BP 117/75
[2021-04-18 08:53] VITALS: BP 137/89
[2021-04-18] MEDS: OLANZapine 10 MG TABLET PO SCH (09:37)
[2021-04-18] MEDS: DIVALPROEX SODIUM 500 MG DR TABLET PO SCH (09:37)
[2021-04-18] MEDS: GABAPENTIN 400 MG CAPSULE PO SCH ×3 (09:37→15:00)
[2021-04-18] MEDS: METOPROLOL TARTRATE 50 MG TABLET PO SCH (09:38)
[2021-04-18] MEDS ORDERED: GABA-1201 PO (13:05)
[2021-04-18] MEDS ORDERED: DIVA-112 PO (13:06)
[2021-04-18] MEDS ORDERED: OLAN10TA74 PO (13:06)
[2021-04-18] MEDS ORDERED: METO50 PO (13:08)
== END 2021-04-18 14:45 | disposition home or self-care (01) | DRG 750 ==
LOC: EMS 16:22 → 3EC 18:40 → B3A 03-24 17:45
PROVIDERS: ADMIT Psychiatry & Neurology Child & Adolescent Psychiatry; ATTEND Psychiatry & Neurology Child & Adolescent Psychiatry
DX: F25.0 Schizoaffective disorder, bipolar type (principal); Z68.41 Body mass index [BMI] 40.0-44.9, adult; E66.9 Obesity, unspecified; Z20.822 Contact with and (suspected) exposure to COVID-19; E87.6 Hypokalemia; F12.90 Cannabis use, unspecified, uncomplicated; F41.9 Anxiety disorder, unspecified; I10 Essential (primary) hypertension; Z91.14 Patient's other noncompliance with medication regimen; Z59.0 Homelessness
CPT/HCPCS: 80053; 80061; 84439; 84443; 85025; 99291; G0480; J1200; J1630; J2060

== ENCOUNTER 2021-06-10 11:52 | Inpatient (IN) | payer MEDICAID, OTHER ==
[~2021-06-10] VITALS: Ht 195.6 cm; Wt 150.7 kg
[~2021-06-10 11:52] MED LIST changes: -ARIP10TA38 PO; +OLAN10TA74 PO
[2021-06-10 12:35] LABS: BASOPHILS % (AUTO) 0.6 % (0.0-2.0); EOSINOPHILS % (AUTO) 0.8 % (1.0-6.0); HEMATOCRIT 44.3 % (41-53); HEMOGLOBIN 15.3 g/dL (13.5-17.5); LYMPHOCYTES # (AUTO) 1.7 K/uL (1.0-4.8); LYMPHOCYTES % (AUTO) 20.4 % (22.0-44.0); MEAN CORPUSCULAR HEMOGLOBIN 31.1 pg (26.0-34.0); MEAN CORPUSCULAR HGB CONC 34.6 G/dL (31.0-37.0); MEAN CORPUSCULAR VOLUME 90 fL (80-100); MONOCYTES # (AUTO) 0.6 K/uL (0.1-1.0); MONOCYTES % (AUTO) 6.9 % (2.0-9.0); NEUTROPHILS # (AUTO) 5.9 K/uL (1.8-7.7); NEUTROPHILS % (AUTO) 71.3 % (40.0-70.0); PLATELET COUNT (AUTO) 212 K/uL (150-450); RED BLOOD CELL COUNT(AUTO) 4.94 MIL/uL (4.50-5.90)
[2021-06-10] MEDS ORDERED: HALOPERIDOL LACTATE 5 MG/ML VIAL IM ONE (12:45)
[2021-06-10] MEDS ORDERED: DiphenhydrAMINE HCL 50 MG/ML VIAL IM ONE (12:45)
[2021-06-10] MEDS ORDERED: LORazepam 2 MG/ML VIAL IM ONE (12:45)
[2021-06-10 12:58] LABS: ANION GAP 10 mmol/L (8-16); CALCIUM, TOTAL 8.6 mg/dL (8.8-10.5); CARBON DIOXIDE 27 mmol/L (22-29); CHLORIDE 103 mmol/L (98-107); CREATININE 0.94 mg/dL (0.60-1.30); GLOMERULAR FILTR. RATE CALC > 60 mL/min (>60); GLUCOSE,RANDOM 103 mg/dL (70-110); POTASSIUM 3.3 mmol/L (3.5-5.1); SODIUM SERUM 140 mmol/L (136-145); UREA NITROGEN, BLOOD 9 mg/dL (7-18)
[2021-06-10 12:59] LABS: AMPHET/METH SCREEN,URINE NEGATIVE (NEGATIVE); BARBITURATE SCREEN, URINE NEGATIVE (NEGATIVE); BENZODIAZEPINES SCREEN,URINE NEGATIVE (NEGATIVE); CANNABINOID SCREEN,URINE POSITIVE (NEGATIVE); COCAINE SCREEN,URINE NEGATIVE (NEGATIVE); METHADONE SCREEN, URINE NEGATIVE (NEGATIVE); OPIATE SCREEN,URINE NEGATIVE (NEGATIVE)
[2021-06-10 13:03] LABS: PHENCYCLIDINE SCREEN,URINE NEGATIVE (NEGATIVE)
[2021-06-10 13:03] LABS: ALANINE AMINOTRANSFERASE 70 U/L (12-78); ALBUMIN 4.2 g/dL (3.4-5.0); ALKALINE PHOSPHATASE 104 U/L (46-116); ASPARTATE AMINOTRANSFERASE 28 U/L (15-37); BILIRUBIN,TOTAL 0.9 mg/dL (0.1-1.0); TOTAL PROTEIN, SERUM 8.2 g/dL (6.4-8.2)
[2021-06-10 13:23] LABS: COVID AG,FIA SOURCE NASAL SWAB
[2021-06-10] MEDS ORDERED: OLANZapine 5 MG RAPDIS TABLET PO PRN (13:30)
[2021-06-10] MEDS ORDERED: HydrOXYzine PAMOATE 50 MG CAPSULE PO PRN (13:30)
[2021-06-10] MEDS ORDERED: LOPERAMIDE HCL 2 MG CAPSULE PO PRN (13:30)
[2021-06-10] MEDS ORDERED: MAG HYDROX/AL HYDROX/SIMETH ES 30 ML SUSPENSION UDCUP PO PRN (13:30)
[2021-06-10] MEDS ORDERED: MAGNESIUM HYDROXIDE SUSPENSION 30 ML UDCUP PO PRN (13:30)
[2021-06-10] MEDS ORDERED: GuaiFENesin/D-METHORPHAN [SUGAR-FREE] 200-20MG/10 ML SYRUP UDCUP PO PRN (13:30)
[2021-06-10] MEDS ORDERED: PROMETHAZINE HCL 25 MG TABLET PO PRN (13:30)
[2021-06-10] MEDS ORDERED: ZOLPIDEM TARTRATE 10 MG TABLET PO PRN (13:30)
[2021-06-10] MEDS ORDERED: POTASSIUM CHLORIDE 10% 40 MEQ/30 ML LIQUID UDCUP PO ONE (13:30)
[2021-06-10] MEDS ORDERED: TUBERCULIN, PURIFIED PROTEIN DERIVATIVE 5 TU/0.1 ML SYRINGE ID ONE (13:30)
[2021-06-10] MEDS ORDERED: ACETAMINOPHEN 325 MG TABLET PO PRN (13:30)
[2021-06-10 17:10] VITALS: BP 146/92
[2021-06-10] MEDS: THIAMINE 100 MG TABLET PO SCH (18:36)
[2021-06-10] MEDS ORDERED: OLANZapine 5 MG RAPDIS TABLET PO SCH (21:00)
[2021-06-10] MEDS: MELATONIN 5 MG TABLET PO SCH (21:01)
[2021-06-10] MEDS: DIVALPROEX SODIUM 500 MG ER TABLET PO SCH (21:37)
[2021-06-11] MEDS ORDERED: FLUoxetine HCL 20 MG CAPSULE PO SCH (09:00)
[2021-06-11] MEDS ORDERED: PALIPERIDONE PALMITATE 234 MG/1.5 ML SYRINGE IM ONE (09:00)
[2021-06-11] MEDS: FOLIC ACID 1 MG TABLET PO SCH (11:00)
[2021-06-11] MEDS: OMEGA-3/DHA/EPA/FISH OIL 1,000 MG CAPSULE PO SCH (11:00)
[2021-06-11] MEDS: MULTIVITAMINS WITH MINERALS, THERAPEUTIC TABLET PO SCH (11:15)
[2021-06-11] MEDS: GABAPENTIN 400 MG CAPSULE PO SCH ×3 (11:15→16:27)
[2021-06-11] MEDS: NALTREXONE HCL 50 MG TABLET PO SCH (11:16)
[2021-06-11] MEDS: THIAMINE 100 MG TABLET PO SCH ×2 (11:16→16:27)
[2021-06-11] MEDS: LORazepam 2 MG TABLET PO PRN (11:17)
[2021-06-11 16:25] VITALS: BP 132/72
[2021-06-11] MEDS: METOPROLOL TARTRATE 25 MG TABLET PO SCH (16:27)
[2021-06-11] MEDS ORDERED: POTASSIUM CHLORIDE 20 MEQ ER TABLET PO ONE (19:30)
[2021-06-11] MEDS: MELATONIN 5 MG TABLET PO SCH (20:35)
[2021-06-11] MEDS: DIVALPROEX SODIUM 500 MG ER TABLET PO SCH (20:35)
[2021-06-12 08:15] LABS: HEMOGLOBIN A1C 4.8 % (3.8-5.6)
[2021-06-12 08:29] VITALS: BP 118/72
[2021-06-12 08:42] LABS: CHOL/HDL RATIO 3.9 (4.2-7.3); FREE T4 (FREE THYROXINE) 1.26 ng/dL (0.76-1.46); POTASSIUM 3.9 mmol/L (3.5-5.1)
[2021-06-12] MEDS: OMEGA-3/DHA/EPA/FISH OIL 1,000 MG CAPSULE PO SCH (09:12)
[2021-06-12] MEDS: MULTIVITAMINS WITH MINERALS, THERAPEUTIC TABLET PO SCH (09:12)
[2021-06-12] MEDS: FOLIC ACID 1 MG TABLET PO SCH (09:12)
[2021-06-12] MEDS: LORazepam 2 MG TABLET PO PRN (09:13)
[2021-06-12] MEDS: METOPROLOL TARTRATE 25 MG TABLET PO SCH ×2 (09:13→16:36)
[2021-06-12] MEDS: THIAMINE 100 MG TABLET PO SCH ×2 (09:13→16:36)
[2021-06-12] MEDS: NALTREXONE HCL 50 MG TABLET PO SCH (09:13)
[2021-06-12] MEDS: GABAPENTIN 400 MG CAPSULE PO SCH ×3 (09:13→16:37)
[2021-06-12 16:27] VITALS: BP 127/77
[2021-06-12] MEDS: MELATONIN 5 MG TABLET PO SCH (20:30)
[2021-06-12] MEDS: DIVALPROEX SODIUM 500 MG ER TABLET PO SCH (20:30)
[2021-06-13 02:09] VITALS: BP 151/92
[2021-06-13] MEDS: NALTREXONE HCL 50 MG TABLET PO SCH ×2 (08:56→09:26)
[2021-06-13] MEDS: MULTIVITAMINS WITH MINERALS, THERAPEUTIC TABLET PO SCH ×2 (08:56→09:26)
[2021-06-13] MEDS: OMEGA-3/DHA/EPA/FISH OIL 1,000 MG CAPSULE PO SCH ×2 (08:56→09:26)
[2021-06-13] MEDS: GABAPENTIN 400 MG CAPSULE PO SCH ×4 (08:56→16:09)
[2021-06-13] MEDS: METOPROLOL TARTRATE 25 MG TABLET PO SCH ×3 (08:56→16:09)
[2021-06-13] MEDS: THIAMINE 100 MG TABLET PO SCH ×3 (08:56→16:09)
[2021-06-13] MEDS: FOLIC ACID 1 MG TABLET PO SCH ×2 (08:56→09:26)
[2021-06-13 09:10] VITALS: BP 140/82
[2021-06-13] MEDS: LORazepam 2 MG TABLET PO PRN ×2 (09:20→16:09)
[2021-06-13 16:24] VITALS: BP 118/79
[2021-06-13] MEDS: OLANZapine 10 MG RAPDIS TABLET PO SCH (21:17)
[2021-06-13] MEDS: DIVALPROEX SODIUM 500 MG ER TABLET PO SCH (21:18)
[2021-06-13] MEDS: MELATONIN 5 MG TABLET PO SCH (21:18)
[2021-06-14 03:03] VITALS: BP 124/78
[2021-06-14] MEDS: METOPROLOL TARTRATE 25 MG TABLET PO SCH ×2 (08:52→16:35)
[2021-06-14] MEDS: FOLIC ACID 1 MG TABLET PO SCH (08:52)
[2021-06-14] MEDS: THIAMINE 100 MG TABLET PO SCH ×2 (08:52→16:35)
[2021-06-14] MEDS: OMEGA-3/DHA/EPA/FISH OIL 1,000 MG CAPSULE PO SCH (08:52)
[2021-06-14] MEDS: NALTREXONE HCL 50 MG TABLET PO SCH (08:52)
[2021-06-14] MEDS: MULTIVITAMINS WITH MINERALS, THERAPEUTIC TABLET PO SCH (08:52)
[2021-06-14] MEDS: GABAPENTIN 400 MG CAPSULE PO SCH ×3 (08:52→16:35)
[2021-06-14 16:24] VITALS: BP 130/83
[2021-06-14] MEDS: MELATONIN 5 MG TABLET PO SCH (20:56)
[2021-06-14] MEDS: OLANZapine 10 MG RAPDIS TABLET PO SCH (20:56)
[2021-06-14] MEDS: DIVALPROEX SODIUM 500 MG ER TABLET PO SCH (20:56)
[2021-06-15 02:59] VITALS: BP 143/82
[2021-06-15] MEDS ORDERED: PALIPERIDONE PALMITATE 156 MG/ML SYRINGE IM ONE (09:00)
[2021-06-15] MEDS: THIAMINE 100 MG TABLET PO SCH ×2 (09:15→16:50)
[2021-06-15] MEDS: NALTREXONE HCL 50 MG TABLET PO SCH (09:15)
[2021-06-15] MEDS: GABAPENTIN 400 MG CAPSULE PO SCH ×3 (09:15→16:50)
[2021-06-15] MEDS: OMEGA-3/DHA/EPA/FISH OIL 1,000 MG CAPSULE PO SCH (09:15)
[2021-06-15] MEDS: MULTIVITAMINS WITH MINERALS, THERAPEUTIC TABLET PO SCH (09:15)
[2021-06-15] MEDS: METOPROLOL TARTRATE 25 MG TABLET PO SCH ×2 (09:16→16:50)
[2021-06-15] MEDS: FOLIC ACID 1 MG TABLET PO SCH (09:16)
[2021-06-15] MEDS: FLUoxetine HCL 20 MG CAPSULE PO SCH (09:16)
[2021-06-15] MEDS: LORazepam 2 MG TABLET PO PRN ×2 (09:22→16:55)
[2021-06-15 17:17] VITALS: BP 126/65
[2021-06-15] MEDS: MELATONIN 5 MG TABLET PO SCH (21:06)
[2021-06-15] MEDS: OLANZapine 10 MG RAPDIS TABLET PO SCH (21:06)
[2021-06-15] MEDS: DIVALPROEX SODIUM 500 MG ER TABLET PO SCH (21:06)
[2021-06-16 04:00] VITALS: BP 128/72
[2021-06-16] MEDS: FOLIC ACID 1 MG TABLET PO SCH (09:44)
[2021-06-16] MEDS: METOPROLOL TARTRATE 25 MG TABLET PO SCH ×2 (09:45→16:46)
[2021-06-16] MEDS: OMEGA-3/DHA/EPA/FISH OIL 1,000 MG CAPSULE PO SCH (09:45)
[2021-06-16] MEDS: MULTIVITAMINS WITH MINERALS, THERAPEUTIC TABLET PO SCH (09:45)
[2021-06-16] MEDS: THIAMINE 100 MG TABLET PO SCH ×2 (09:46→16:46)
[2021-06-16] MEDS: FLUoxetine HCL 20 MG CAPSULE PO SCH (09:46)
[2021-06-16] MEDS: GABAPENTIN 400 MG CAPSULE PO SCH ×3 (09:46→16:46)
[2021-06-16] MEDS: NALTREXONE HCL 50 MG TABLET PO SCH (09:46)
[2021-06-16 17:35] VITALS: BP 137/81
[2021-06-16] MEDS ORDERED: GABA-1201 PO (20:00)
[2021-06-16] MEDS ORDERED: DIVA-80 PO (20:00)
[2021-06-16] MEDS ORDERED: FLUO20CA36 PO (20:00)
[2021-06-16] MEDS ORDERED: OMEG-135 PO (20:00)
[2021-06-16] MEDS ORDERED: NALT50TA PO (20:00)
[2021-06-16] MEDS ORDERED: MELA5TAB40 PO (20:00)
[2021-06-16] MEDS ORDERED: OLAN10TA26 PO (20:00)
[2021-06-16] MEDS: DIVALPROEX SODIUM 500 MG ER TABLET PO SCH (20:50)
[2021-06-16] MEDS: MELATONIN 5 MG TABLET PO SCH (20:50)
[2021-06-16] MEDS ORDERED: OLANZapine 5 MG RAPDIS TABLET PO SCH (21:00)
[2021-06-17 02:30] VITALS: BP 134/79
[2021-06-17] MEDS: OMEGA-3/DHA/EPA/FISH OIL 1,000 MG CAPSULE PO SCH (08:01)
[2021-06-17] MEDS: MULTIVITAMINS WITH MINERALS, THERAPEUTIC TABLET PO SCH (08:01)
[2021-06-17] MEDS: FOLIC ACID 1 MG TABLET PO SCH (08:01)
[2021-06-17] MEDS: NALTREXONE HCL 50 MG TABLET PO SCH (08:01)
[2021-06-17] MEDS: FLUoxetine HCL 20 MG CAPSULE PO SCH (08:01)
[2021-06-17] MEDS: GABAPENTIN 400 MG CAPSULE PO SCH (08:01)
[2021-06-17] MEDS: THIAMINE 100 MG TABLET PO SCH (08:01)
[2021-06-17] MEDS: METOPROLOL TARTRATE 25 MG TABLET PO SCH (08:01)
[2021-06-17 08:22] VITALS: BP 131/73
== END 2021-06-17 11:45 | disposition home or self-care (01) | DRG 750 ==
LOC: EMS 11:52 → B3A 16:39
PROVIDERS: ADMIT Psychiatry & Neurology Psychiatry; ATTEND Psychiatry & Neurology Psychiatry
DX: F25.0 Schizoaffective disorder, bipolar type (principal); R45.851 Suicidal ideations; Z59.0 Homelessness; F60.0 Paranoid personality disorder; F12.10 Cannabis abuse, uncomplicated; E87.6 Hypokalemia; Z20.822 Contact with and (suspected) exposure to COVID-19; I10 Essential (primary) hypertension; Z79.899 Other long term (current) drug therapy; Z87.891 Personal history of nicotine dependence; Z91.14 Patient's other noncompliance with medication regimen; Z91.19 Patient's noncompliance with other medical treatment and regimen
CPT/HCPCS: 80053; 80061; 83036; 84132; 84439; 85025; 86592; 99285; G0480; J1200; J1630; J2060; Q9967

== ENCOUNTER 2021-10-09 23:57 | Inpatient (IN) | payer MEDICAID, OTHER ==
[~2021-10-09] VITALS: Ht 195.6 cm
[~2021-10-09 23:57] MED LIST changes: -DIVA-112 PO; +DIVA-80 PO; +FLUO20CA36 PO; +MELA5TAB40 PO; +NALT50TA PO; +OLAN10TA26 PO; -OLAN10TA74 PO; +OMEG-135 PO
[2021-10-10 01:44] LABS: COVID AG,FIA SOURCE NASOPHARYNGEAL
[2021-10-10 02:05] LABS: BASOPHILS % (AUTO) 0.7 % (0.0-2.0); EOSINOPHILS % (AUTO) 2.2 % (1.0-6.0); HEMATOCRIT 42.7 % (41-53); HEMOGLOBIN 15.1 g/dL (13.5-17.5); LYMPHOCYTES % (AUTO) 20.5 % (22.0-44.0); MEAN CORPUSCULAR HEMOGLOBIN 31.4 pg (26.0-34.0); MEAN CORPUSCULAR HGB CONC 35.4 G/dL (31.0-37.0); MEAN CORPUSCULAR VOLUME 89 fL (80-100); MONOCYTES # (AUTO) 0.7 K/uL (0.1-1.0); MONOCYTES % (AUTO) 7.5 % (2.0-9.0); NEUTROPHILS # (AUTO) 6.8 K/uL (1.8-7.7); NEUTROPHILS % (AUTO) 69.1 % (40.0-70.0); PLATELET COUNT (AUTO) 214 K/uL (150-450); RED CELL DISTRIBUTION WIDTH 13.4 % (11.5-14.5)
[2021-10-10 02:11] LABS: AMPHET/METH SCREEN,URINE NEGATIVE (NEGATIVE); BARBITURATE SCREEN, URINE NEGATIVE (NEGATIVE); BENZODIAZEPINES SCREEN,URINE NEGATIVE (NEGATIVE); CANNABINOID SCREEN,URINE POSITIVE (NEGATIVE); COCAINE SCREEN,URINE NEGATIVE (NEGATIVE); METHADONE SCREEN, URINE NEGATIVE (NEGATIVE); OPIATE SCREEN,URINE NEGATIVE (NEGATIVE)
[2021-10-10 02:15] LABS: ANION GAP 7 mmol/L (8-16); CARBON DIOXIDE 30 mmol/L (22-29); CHLORIDE 104 mmol/L (98-107); CREATININE 0.99 mg/dL (0.60-1.30); GLOMERULAR FILTR. RATE CALC > 60 mL/min (>60); GLUCOSE,RANDOM 108 mg/dL (70-110); POTASSIUM 3.9 mmol/L (3.5-5.1); SODIUM SERUM 141 mmol/L (136-145); UREA NITROGEN, BLOOD 15 mg/dL (7-18)
[2021-10-10 02:21] LABS: ALANINE AMINOTRANSFERASE 67 U/L (12-78); ALBUMIN 4.2 g/dL (3.4-5.0); ALKALINE PHOSPHATASE 83 U/L (46-116); ASPARTATE AMINOTRANSFERASE 26 U/L (15-37); BILIRUBIN,TOTAL 0.5 mg/dL (0.1-1.0)
[2021-10-10 02:29] LABS: PHENCYCLIDINE SCREEN,URINE NEGATIVE (NEGATIVE)
[2021-10-10 02:47] LABS: VALPROIC ACID < 3 mcg/mL (50-100)
[2021-10-10] MEDS ORDERED: ZOLPIDEM TARTRATE 10 MG TABLET PO PRN (03:15)
[2021-10-10] MEDS ORDERED: OLANZapine 5 MG TABLET PO ONE (04:00)
[2021-10-10] MEDS ORDERED: DIVALPROEX SODIUM 500 MG ER TABLET PO ONE (04:00)
[2021-10-10 14:36] VITALS: BP 155/89
[2021-10-10] MEDS: METOPROLOL TARTRATE 50 MG TABLET PO SCH (20:36)
[2021-10-10] MEDS: HALOPERIDOL 5 MG TABLET PO PRN (20:36)
[2021-10-10 20:38] VITALS: BP 152/92
[2021-10-10] MEDS: LORazepam 2 MG TABLET PO PRN (20:40)
[2021-10-11] MEDS ORDERED: BACITRACIN 28 GM OINTMENT TP PRN (06:45)
[2021-10-11] MEDS ORDERED: CloNIDine HCL 0.1 MG TABLET PO PRN (06:45)
[2021-10-11] MEDS ORDERED: LOPERAMIDE HCL 2 MG CAPSULE PO PRN (06:45)
[2021-10-11] MEDS ORDERED: IBUPROFEN 600 MG TABLET PO PRN (06:45)
[2021-10-11] MEDS ORDERED: PETROLATUM,WHITE 28 GM JELLY TP PRN (06:45)
[2021-10-11] MEDS ORDERED: ALBUTEROL SULFATE HFA 90 MCG/PUFF 8 GM INHALER IH PRN (06:45)
[2021-10-11] MEDS ORDERED: ACETAMINOPHEN 325 MG TABLET PO PRN (06:45)
[2021-10-11] MEDS ORDERED: DOCUSATE SODIUM 100 MG CAPSULE PO PRN (06:45)
[2021-10-11] MEDS ORDERED: MAGNESIUM HYDROXIDE SUSPENSION 30 ML UDCUP PO PRN (06:45)
[2021-10-11] MEDS ORDERED: BENZOCAINE/MENTHOL LOZENGE PO PRN (06:45)
[2021-10-11] MEDS ORDERED: ONDANSETRON HCL 4 MG TABLET PO PRN (06:45)
[2021-10-11] MEDS ORDERED: OMEPRAZOLE 20 MG CAPSULE PO PRN (06:45)
[2021-10-11] MEDS ORDERED: MAG HYDROX/AL HYDROX/SIMETH ES 30 ML SUSPENSION UDCUP PO PRN (06:45)
[2021-10-11] MEDS: METOPROLOL TARTRATE 50 MG TABLET PO SCH ×2 (08:48→16:29)
[2021-10-11] MEDS: OMEGA-3/DHA/EPA/FISH OIL 1,000 MG CAPSULE PO SCH (08:49)
[2021-10-11] MEDS: HALOPERIDOL 5 MG TABLET PO PRN (16:29)
[2021-10-11] MEDS: LORazepam 2 MG TABLET PO PRN (16:30)
[2021-10-11] MEDS: DIVALPROEX SODIUM 500 MG DR TABLET PO SCH (19:22)
[2021-10-11] MEDS: OLANZapine 10 MG TABLET PO SCH (21:16)
[2021-10-12] MEDS: METOPROLOL TARTRATE 50 MG TABLET PO SCH ×2 (09:45→16:16)
[2021-10-12] MEDS: OMEGA-3/DHA/EPA/FISH OIL 1,000 MG CAPSULE PO SCH (09:45)
[2021-10-12] MEDS: DIVALPROEX SODIUM 500 MG DR TABLET PO SCH ×3 (09:45→16:16)
[2021-10-12] MEDS: OLANZapine 10 MG TABLET PO SCH (20:25)
[2021-10-13] MEDS: DIVALPROEX SODIUM 500 MG DR TABLET PO SCH ×3 (10:21→16:22)
[2021-10-13] MEDS: METOPROLOL TARTRATE 50 MG TABLET PO SCH ×2 (10:21→16:22)
[2021-10-13] MEDS: OMEGA-3/DHA/EPA/FISH OIL 1,000 MG CAPSULE PO SCH (10:21)
[2021-10-13 13:59] LABS: COVID AG,FIA SOURCE NASOPHARYNGEAL
[2021-10-13] MEDS: OLANZapine 10 MG TABLET PO SCH (20:20)
[2021-10-14] MEDS: METOPROLOL TARTRATE 50 MG TABLET PO SCH ×2 (08:48→16:43)
[2021-10-14] MEDS: OMEGA-3/DHA/EPA/FISH OIL 1,000 MG CAPSULE PO SCH (08:48)
[2021-10-14] MEDS: DIVALPROEX SODIUM 500 MG DR TABLET PO SCH ×3 (08:48→16:43)
[2021-10-14 16:17] VITALS: BP 133/71
[2021-10-14] MEDS: LORazepam 2 MG TABLET PO PRN (16:44)
[2021-10-14] MEDS: HALOPERIDOL 5 MG TABLET PO PRN (16:44)
[2021-10-14] MEDS: OLANZapine 10 MG TABLET PO SCH (21:09)
[2021-10-15] MEDS: DIVALPROEX SODIUM 500 MG DR TABLET PO SCH ×3 (10:25→15:59)
[2021-10-15] MEDS: METOPROLOL TARTRATE 50 MG TABLET PO SCH ×2 (10:25→15:59)
[2021-10-15] MEDS: OMEGA-3/DHA/EPA/FISH OIL 1,000 MG CAPSULE PO SCH (10:25)
[2021-10-15 12:32] LABS: COVID AG,FIA SOURCE NASOPHARYNGEAL
[2021-10-15] MEDS: HALOPERIDOL 5 MG TABLET PO PRN (15:59)
[2021-10-15] MEDS: LORazepam 2 MG TABLET PO PRN (15:59)
[2021-10-15 16:14] VITALS: BP 155/110
[2021-10-15] MEDS ORDERED: OLAN10 PO (17:06)
[2021-10-15] MEDS ORDERED: DIVA-112 PO (17:06)
== END 2021-10-15 19:32 | disposition home or self-care (01) | DRG 750 ==
LOC: EMS 23:59 → 3EC 10-10 13:25
PROVIDERS: ADMIT Psychiatry & Neurology Psychiatry; ATTEND Psychiatry & Neurology Psychiatry
DX: F20.9 Schizophrenia, unspecified (principal); U07.1 COVID-19; E66.9 Obesity, unspecified; F41.9 Anxiety disorder, unspecified; G47.00 Insomnia, unspecified; I10 Essential (primary) hypertension; K59.00 Constipation, unspecified; F12.10 Cannabis abuse, uncomplicated; Z71.51 Drug abuse counseling and surveillance of drug abuser; Z68.41 Body mass index [BMI] 40.0-44.9, adult
CPT/HCPCS: 80053; 80164; 85025; 99285; G0480